=== PATIENT | male | born 1960 | race Caucasian/White ===

== ENCOUNTER 2023-12-05 17:50 | Emergency (ER) | payer MEDICARE, SELFPAY ==
[2023-12-05 17:55] VITALS: BP 157/92
[2023-12-05 18:20] LABS: % Basophils 0.6 % (0-2); % Eosinophils 1.6 % (0-6); % Immature Granulocytes 0.6 % (0-0.5); % Monocytes 6.5 % (1.7-9.3); % Neutrophils 61.7 % (42.2-75.2); Absolute Basophils 0.1 10^3/uL (0-0.2); Absolute Eosinophils 0.2 10^3/uL (0-0.7); Absolute Immature Granulocytes 0.1 10^3/uL (0-0.05); Absolute Lymphocytes 2.7 10^3/uL (1.2-3.4); Absolute Monocytes 0.6 10^3/uL (0.1-0.6); Absolute Neutrophils 5.8 10^3/uL (1.4-6.5); Hematocrit 44.6 % (39.0-52.0); Hemoglobin 14.7 g/dL (13.0-18.0); Mean Corpuscular Hgb 30.3 pg (27.0-31.0); Mean Platelet Volume 9.4 fL (7.4-10.4); Nucleated Red Blood Cells % 0 % (-); Platelet Count 333 10^3/uL (130-400); Red Blood Cell Count 4.85 10^6/uL (4.70-6.10); Red Cell Dist. Width 11.6 % (11.5-14.5); White Blood Cell Count 9.4 10^3/uL (4.8-10.8)
[2023-12-05 18:38] LABS: ALT (SGPT) 27 U/L (0-50); AST (SGOT) 23 U/L (17-59); Albumin 4.3 g/dl (3.5-5.0); Alkaline Phosphatase 78 U/L (38-126); Blood Urea Nitrogen 11 mg/dl (9-20); Calcium 9.5 mg/dl (8.4-10.2); Carbon Dioxide 24 mmol/L (22-30); Chloride 105 mmol/L (98-107); Glucose 110 mg/dl (70-99); Potassium 4.2 mmol/L (3.5-5.1); Sodium 139 mmol/L (135-145); Total Bilirubin 0.4 mg/dl (0.2-1.3); Total Protein 6.8 g/dl (6.3-8.2); eGFR > 60.00
[2023-12-05 18:47] LABS: Troponin I < 0.012 ng/ml
[2023-12-05 18:58] LABS: INR 1.02; PT 13.2 Sec (11.4-14.6)
--- NOTE | 2023-12-05 21:50 | ED.GENMED ---
History of Present Illness
General
Chief Complaint: Cardiac Symptoms
Time Seen by Provider: 12/05/23 20:14
Travel History
Have you had any contact with someone who has COVID-19?: No
Do you have any symptoms of coronavirus? Fever > 100 degrees, chills, cough, shortness of breath, sore throat, loss of taste or smell, muscle aches, or headache?: No
History of Present Illness
History of Present Illness:
63-year-old male with history of hypertension presents to the emergency department for evaluation of generalized weakness ongoing for the past 7 days but worsening over the past 2 to 3 days. He notes difficulty breathing and generalized tremors.
Denies fevers, night sweats, exertional chest pain, or leg swelling. Currently on amoxicillin for dental prophylaxis with upcoming dental extraction scheduled for tomorrow
Past History
Past History
ED Past Medical History: None
ED Past Surgical History: Tonsilectomy
Social History
Tobacco: Smoker
Alcohol: Occasional
Personal: Single
Living: with family
Employment: Employed
Review of Systems
Review of Systems
Allergies reviewed?: Yes
All Other Systems: ROS reviewed and negative except as documented in HPI and ROS
Phy Exam
Physical Exam
Physical Exam:
GEN: Well appearing, NAD, WDWN
Eyes: PERRLA, EOMs intact, no scleral icterus
HENT: NCAT, oral mucosa moist, no JVD
Lungs: CTAB, no wheezes, rales, rhonchi, normal chest wall excursion
Cardiac: RRR, no M/R/G, no peripheral edema. Radial pulses 2+ bilat
Abdomen: S, NT, ND, NABS, no masses or hepatosplenomegaly
Neuro: AO x 3, no focal deficits to BUE/BLE, normal sensation throughout
MSK: No gross deformity or ecchymosis. No edema. No digital clubbing
Skin: No rashes, petechiae. Normal color, no pallor or jaundice.
Psych: Calm, cooperative, proper hygiene
Course
Orders/Labs/Results
Orders:
Orders
12/05/23 17:55
EKG [Electrocardiogram (*1)] Urgent
Reason for Study: Palpitations
CR Chest - 2 Views Urgent
Comment:
Reason For Exam: palpitations
12/05/23 17:56
EKG- Treatment ONCE
12/05/23 18:12
Complete Blood Count/With Diff Urgent
Comprehensive Metabolic Panel Urgent
Prothrombin Time Urgent
Troponin I Urgent
12/05/23 20:49
CT Head W/o Iv Contrast Urgent
Comment:
Reason For Exam: weakness
Abnormal Lab Results
12/05/23
18:12
Abs Immat Gran (auto) 0.1 H 10^3/uL
(0-0.05)
Immature Gran % 0.6 H %
(0-0.5)
Glucose 110 H mg/dl
(70-99)
12/05/23 18:12
12/05/23 18:12
Vital Signs
Initial and Last Documented VS:
Initial Vital Signs
Temp Pulse Resp BP Pulse Ox
97.9 F 89 17 157/92 99
12/05/23 17:55 12/05/23 17:55 12/05/23 17:55 12/05/23 17:55 12/05/23 17:55
Last Documented Vital Signs
Temp Pulse Resp BP Pulse Ox
97.9 F 76 18 143/71 98
12/05/23 17:55 12/05/23 22:12 12/05/23 22:12 12/05/23 22:12 12/05/23 22:12
MDM/Problems Addressed
MDM/Problems Addressed:
63-year-old male presenting with vague symptoms of weakness and intermittent palpitations. Labs are unremarkable, EKG shows no abnormalities, CT of the head was obtained at the patient's request due to his overwhelming symptoms, this showed no
acute pathology. Do not see any indication to withhold his upcoming dental procedure
*Critical Care Note
Total Time (30-74mins, 75-104mins- exclusive of procedures): Not Applicable
ED Attending Note
-
Portions of this chart may have been created with voice recognition software.� Occasional wrong word or��sound alike� substitutions may have occurred due to the inherent limitations of voice recognition software.
Discharge Plan
Departure
Patient Disposition: Home (Routine Discharge)
Date of Disposition: 12/05/23
Time of Disposition: 21:50
Patient with high blood pressure during this ER visit?: No
Discharge Problem:
Fatigue
Instructions: Fatigue (DC)
Prescriptions:
No Action
aspirin 325 MG tablet
2 tab PO PRN PRN (Reason: pain)
sucralfate [Carafate] 1 gram tablet
1 g PO ACHS Qty: 60 0RF
pantoprazole [Protonix] 40 mg tablet,delayed release (DR/EC)
40 mg PO BID Qty: 60 0RF
Referrals:
Allan Lua MD [Family Provider] -
Activity Restrictions/Additional Instructions:
The cause of your symptoms is not clear at this time
Please follow up with your primary care physician as needed for continued symptoms
I do not see any medical indication to alter your dental procedure tomorrow
Interventions
Interventions:
*Risk Screen - Suicide Last Done: 12/05/23 17:55
*General Assessment Last Done: 12/05/23 17:55
*Neglect/Abuse Screening Last Done: 12/05/23 17:55
ED- Fall Risk Assessment Last Done: 12/05/23 22:11
*ED COVID-19 Vaccine History Last Done: 12/05/23 17:55
*Nursing Disposition Last Done: 12/05/23 22:13
ED- Pulmonary Assessment Last Done: 12/05/23 22:11
ED- Cardiac Assessment Last Done: 12/05/23 22:11
Discharge Date and Time
Discharge Date/Time: 12/05/23 22:13
Print Language: OCCITAN
[2023-12-05 22:12] VITALS: BP 143/71
== END 2023-12-05 22:13 | disposition home or self-care (01) ==
LOC: EMR 17:50
PROVIDERS: EMERGENCY PHYSICIAN Student in an Organized Health Care Education/Training Program; FAMILY PHYSICIAN Internal Medicine
DX: R53.83 Other fatigue (principal); F17.200 Nicotine dependence, unspecified, uncomplicated; I10 Essential (primary) hypertension
CPT/HCPCS: 99285; 70450; 71046; 80053; 84484; 85025; 85610; 93005

== ENCOUNTER 2024-08-26 14:16 | Emergency (ER) | payer MEDICARE, SELFPAY ==
[2024-08-26] VITALS (9 sets, daily range): BP systolic 115–151; BP diastolic 71–99; PULSE 70–83
--- NOTE | 2024-08-26 14:39 | ED.GENMED ---
ED Provider Triage
<Vasiliy Morales PA-C - Last Filed: 08/26/24 14:41>
-
Patient seen by provider in Triage?: Seen in Triage
Attestation: A medical screening examination has been initiated by a qualified medical provider. Based on the assessment performed at this time, it has been determined that an emergent medical condition may exist and the patient has been informed
that further medical evaluation and possible additional diagnostic testing may be needed.
HPI: 64-year-old male presenting to the emergency department for evaluation of 2 days of generalized weakness and fatigue, today started noticing worsening paresthesias to the bilateral upper and lower extremities. Notes he was recently treated for
an upper respiratory illness and is completing a course of prednisone. Patient stable. Labs and EKG ordered.
GENERAL: Alert , in no apparent distress
EYE: No visual abnormalities.
NECK: Trachea midline
ENT: No visible abnormalities.
LUNGS: No acute respiratory distress
NEUROLOGICAL: Alert and oriented
SKIN: Skin intact. No visible changes.
MUSCULOSKELETAL: Moving extremities normally
PSYCH: Normal and appropriate interaction.
This is a medical evaluation conducted in person to initiate diagnostic evaluation and provide initial therapeutics. Please see further documentation by the treating clinician.
History of Present Illness
<Vasiliy Morales PA-C - Last Filed: 08/26/24 14:41>
General
Chief Complaint: Fatigue
Time Seen by Provider: 08/26/24 19:52
<Carlene Miles MD - Last Filed: 08/26/24 21:52>
History of Present Illness
History of Present Illness:
Patient is a 64-year-old male with history of hypertension, reflux presenting to the emergency department generalized weakness. Patient for the past 2 days has been having generalized weakness tiredness and lightheadedness dizziness with positional
changes. He has been having some mild exertional shortness of breath. No chest pain. He states that as well as been having paresthesias to his fingers and toes. No numbness tingling to the extremities. No weakness. No fevers or chills. He has
been having some mild congestion. No abdominal pain. No nausea or vomiting. No diarrhea. No melena or hematochezia. He does state that he only had 4 ounces of water today and 16 ounces of water yesterday. He does state his solid intake has
been normal.
Past History
<Vasiliy Morales PA-C - Last Filed: 08/26/24 14:41>
Past History
ED Past Medical History: None
ED Past Surgical History: Tonsilectomy
Social History
Tobacco: Smoker
Alcohol: Occasional
Personal: Single
Living: with family
Employment: Employed
Phy Exam
<Cralene Miles MD - Last Filed: 08/26/24 21:52>
Physical Exam
Physical Exam:
GENERAL: in no acute distress
HEENT: normocephalic, extraocular movements intact, dry oral mucosa
NECK: normal inspection
RESPIRATORY: no respiratory distress, clear to auscultation bilaterally
CARDIOVASCULAR: regular rate and rhythm
ABDOMEN/: soft, non-distended, non-tender to palpation, no rebound or guarding
EXTREMITIES: non-tender, no edema/swelling
NEUROLOGIC: alert and oriented x 3, cranial nerves II-XII intact, right upper extremity strength 5/5, left upper extremity strength 5/5, right lower extremity strength 5/5, left lower extremity strength 5/5, normal sensation to light touch, normal
[id number] and knbc-[id number]-[id number], gait not tested formally
SKIN: warm
Course
<Vasiliy Morales PA-C - Last Filed: 08/26/24 14:41>
Orders/Labs/Results
Orders:
Orders
08/26/24 14:40
Electrocardiogram (*1) Urgent
Reason for Study: Fatigue / Weakness
EKG- Treatment ONCE
08/26/24 14:46
Complete Blood Count/With Diff Urgent
Comprehensive Metabolic Panel Urgent
Magnesium Urgent
TSH Urgent
Troponin I Urgent
08/26/24 19:49
COVID-19 Antigen Urgent
Source: Nasal Swab
Influenza A+B Rapid Molecular Urgent
RADHA Source: Nasal Swab
Specimen Description:
08/26/24 20:00
Orthostatic VS- Treatment ONCE
Mag Hydrox/Al Hydrox/Simeth [Maalox] 30 ml Phenobarb/Hyoscy/Atropine/Scop [] 10 ml Viscous Lidocaine 2% [Xylocaine Viscous Cup] 10 ml PO NOW
08/26/24 20:02
Mag Hydrox/Al Hydrox/Simeth [Maalox] 30 ml .ROUTE .STK-MED ONE
Phenobarb/Hyoscy/Atropine/Scop [] 10 ml .ROUTE .STK-MED ONE
Viscous Lidocaine 2% [Xylocaine Viscous Cup] 15 ml .ROUTE .STK-MED ONE
08/26/24 21:10
Urinalysis Reflex To Culture Urgent
Date Specimen was Collected: 08/26/24
Time Specimen was Collected: 21:04
Urine Microscopic Reflex Cult Urgent
Abnormal Lab Results
08/26/24 08/26/24
14:46 21:10
RBC 4.52 L 10^6/uL
(4.70-6.10)
MCHC 32.7 L g/dL
(33.0-37.0)
Abs Immat Gran (auto) 0.1 H 10^3/uL
(0-0.05)
Absolute Neuts (auto) 7.2 H 10^3/uL
(1.4-6.5)
Immature Gran % 0.8 H %
(0-0.5)
BUN 8 L mg/dl
(9-20)
Glucose 111 H mg/dl
(70-99)
Total Protein 6.2 L g/dl
(6.3-8.2)
Urine Bacteria (Reflex) Few A
(Negative)
Urine Albumin (Reflex) 1+ A
(Neg - Trace)
08/26/24 14:46
08/26/24 14:46
Vital Signs
Initial and Last Documented VS:
Initial Vital Signs
Temp Pulse Resp BP Pulse Ox
99.3 F 87 20 142/73 99
08/26/24 14:40 08/26/24 14:40 08/26/24 14:40 08/26/24 14:40 08/26/24 14:40
Last Documented Vital Signs
Temp Pulse Resp BP Pulse Ox
99.3 F 76 15 134/76 95
08/26/24 14:40 08/26/24 21:45 08/26/24 21:45 08/26/24 21:00 08/26/24 21:45
<Carlene Miles MD - Last Filed: 08/26/24 21:52>
Orders/Labs/Results
Orders:
Orders
08/26/24 14:40
Electrocardiogram (*1) Urgent
Reason for Study: Fatigue / Weakness
EKG- Treatment ONCE
08/26/24 14:46
Complete Blood Count/With Diff Urgent
Comprehensive Metabolic Panel Urgent
Magnesium Urgent
TSH Urgent
Troponin I Urgent
08/26/24 19:49
COVID-19 Antigen Urgent
Source: Nasal Swab
Influenza A+B Rapid Molecular Urgent
RADHA Source: Nasal Swab
Specimen Description:
08/26/24 20:00
Orthostatic VS- Treatment ONCE
Mag Hydrox/Al Hydrox/Simeth [Maalox] 30 ml Phenobarb/Hyoscy/Atropine/Scop [] 10 ml Viscous Lidocaine 2% [Xylocaine Viscous Cup] 10 ml PO NOW
08/26/24 20:02
Mag Hydrox/Al Hydrox/Simeth [Maalox] 30 ml .ROUTE .STK-MED ONE
Phenobarb/Hyoscy/Atropine/Scop [] 10 ml .ROUTE .STK-MED ONE
Viscous Lidocaine 2% [Xylocaine Viscous Cup] 15 ml .ROUTE .STK-MED ONE
08/26/24 21:10
Urinalysis Reflex To Culture Urgent
Date Specimen was Collected: 08/26/24
Time Specimen was Collected: 21:04
Urine Microscopic Reflex Cult Urgent
Abnormal Lab Results
08/26/24 08/26/24
14:46 21:10
RBC 4.52 L 10^6/uL
(4.70-6.10)
MCHC 32.7 L g/dL
(33.0-37.0)
Abs Immat Gran (auto) 0.1 H 10^3/uL
(0-0.05)
Absolute Neuts (auto) 7.2 H 10^3/uL
(1.4-6.5)
Immature Gran % 0.8 H %
(0-0.5)
BUN 8 L mg/dl
(9-20)
Glucose 111 H mg/dl
(70-99)
Total Protein 6.2 L g/dl
(6.3-8.2)
Urine Bacteria (Reflex) Few A
(Negative)
Urine Albumin (Reflex) 1+ A
(Neg - Trace)
08/26/24 14:46
08/26/24 14:46
Vital Signs
Initial and Last Documented VS:
Initial Vital Signs
Temp Pulse Resp BP Pulse Ox
99.3 F 87 20 142/73 99
08/26/24 14:40 08/26/24 14:40 08/26/24 14:40 08/26/24 14:40 08/26/24 14:40
Last Documented Vital Signs
Temp Pulse Resp BP Pulse Ox
99.3 F 76 15 134/76 95
08/26/24 14:40 08/26/24 21:45 08/26/24 21:45 08/26/24 21:00 08/26/24 21:45
<Carlene Miles MD - Last Filed: 08/26/24 21:52>
MDM/Problems Addressed
Differential Diagnosis Includes:
Patient is a 64-year-old male with history of hypertension, reflux presenting to the emergency department with generalized weakness for the past 2 days. Vitals here are unremarkable and exam does show dry oral mucosa. Differential is broad but
consists of metabolic derangement versus UTI versus viral illness. Could be anemia. Lightheadedness dizziness is positional likely orthostatic. History and exam not consistent with a central cause of his dizziness. Blood work obtained prior to
evaluation is unremarkable. Will check urine as well as COVID and flu swab. Will check orthostatic vital signs and encourage p.o. intake and ambulate patient
<Carlene Miles MD - Last Filed: 08/26/24 21:52>
*Critical Care Note
Total Time (30-74mins, 75-104mins- exclusive of procedures): Not Applicable
<Carlene Miles MD - Last Filed: 08/26/24 21:52>
Update Note
Update Note:
COVID flu negative. Orthostatic vitals negative. Patient tolerating p.o. He does feel slightly better after drinking water and eating a box lunch. Will discharge patient at this time. Patient educated on increasing his water intake from 16
ounce ounces.
ED Attending Note
<Vasiliy Morales PA-C - Last Filed: 08/26/24 14:41>
-
Portions of this chart may have been created with voice recognition software.� Occasional wrong word or��sound alike� substitutions may have occurred due to the inherent limitations of voice recognition software.
Discharge Plan
Departure
Patient Disposition: Home (Routine Discharge)
Date of Disposition: 08/26/24
Time of Disposition: 21:51
Patient with high blood pressure during this ER visit?: No
Discharge Problem:
Dehydration
Instructions: Generalized Weakness (DC)
Prescriptions:
No Action
aspirin 325 MG tablet
2 tab PO PRN PRN (Reason: pain)
sucralfate [Carafate] 1 gram tablet
1 g PO ACHS Qty: 60 0RF
pantoprazole [Protonix] 40 mg tablet,delayed release (DR/EC)
40 mg PO BID Qty: 60 0RF
Referrals:
ROSALIA RIZO CRNP [Family Provider] -
Activity Restrictions/Additional Instructions:
You were seen in the Emergency Department today for weakness. While you were here we performed blood work, which was reassuring. Please make sure you drink at least 64 ounces of water.
We would like for you to follow up with your primary care physician for further evaluation. If you experience fever, worsening of your symptoms, or develop any other new or concerning symptoms, please return to the Emergency Department immediately.
Please see the attached sheet for additional information.
Interventions
Interventions:
*Risk Screen - Suicide Last Done: 08/26/24 14:40
*General Assessment Last Done: 08/26/24 14:40
*Neglect/Abuse Screening Last Done: 08/26/24 14:40
*ED COVID-19 Vaccine History Last Done: 08/26/24 19:39
Discharge Date and Time
Print Language: ISRAELI
[2024-08-26 15:00] LABS: % Basophils 0.4 % (0-2); % Eosinophils 0.9 % (0-6); % Immature Granulocytes 0.8 % (0-0.5); % Lymphocytes 24.3 % (20.5-51.1); % Monocytes 5.4 % (1.7-9.3); % Neutrophils 68.2 % (42.2-75.2); Absolute Eosinophils 0.1 10^3/uL (0-0.7); Absolute Immature Granulocytes 0.1 10^3/uL (0-0.05); Absolute Lymphocytes 2.6 10^3/uL (1.2-3.4); Absolute Monocytes 0.6 10^3/uL (0.1-0.6); Absolute Neutrophils 7.2 10^3/uL (1.4-6.5); Hematocrit 42.5 % (39.0-52.0); Hemoglobin 13.9 g/dL (13.0-18.0); Mean Corp Hgb Conc. 32.7 g/dL (33.0-37.0); Mean Corpuscular Hgb 30.8 pg (27.0-31.0); Mean Platelet Volume 9.5 fL (7.4-10.4); Nucleated Red Blood Cells % 0 % (-); Platelet Count 303 10^3/uL (130-400); Red Blood Cell Count 4.52 10^6/uL (4.70-6.10); Red Cell Dist. Width 12.1 % (11.5-14.5); White Blood Cell Count 10.5 10^3/uL (4.8-10.8)
[2024-08-26 15:13] LABS: ALT (SGPT) 24 U/L (0-50); AST (SGOT) 22 U/L (17-59); Alkaline Phosphatase 71 U/L (38-126); Blood Urea Nitrogen 8 mg/dl (9-20); Calcium 9.3 mg/dl (8.4-10.2); Carbon Dioxide 24 mmol/L (22-30); Chloride 107 mmol/L (98-107); Glucose 111 mg/dl (70-99); Magnesium 2.1 mg/dl (1.6-2.3); Potassium 4.1 mmol/L (3.5-5.1); Sodium 137 mmol/L (135-145); Total Bilirubin 0.5 mg/dl (0.2-1.3); Total Protein 6.2 g/dl (6.3-8.2); eGFR > 60.00
[2024-08-26 15:24] LABS: Troponin I < 0.012 ng/ml
[2024-08-26 15:42] LABS: TSH 1.31 uIU/ml (0.47-4.68)
[2024-08-26] MEDS: MAALOX 50 PO (20:07)
[2024-08-26 20:16] LABS: COVID-19 Antigen Negative (Negative)
[2024-08-26 21:15] LABS: Urine Albumin 1+ (Neg - Trace); Urine Bilirubin Negative (Negative); Urine Character Clear (Clear); Urine Color Yellow; Urine Glucose Negative (Negative); Urine Ketone Negative (Negative); Urine Leukocyte Negative (Negative); Urine Nitrite Negative (Negative); Urine Occult Blood Negative (Negative); Urine Specific Gravity 1.025 (<1.030); Urine Urobilinogen Negative (Neg - 1+)
[2024-08-26 21:45] LABS: Urine Bacteria Few (Negative); Urine Hyaline Cast 0-2 /LPF (0-2); Urine Mucus Moderate; Urine Red Blood Cell 0-2 /HPF (0-2); Urine Squamous Cell 0-2 /LPF (Few)
== END 2024-08-26 21:55 | disposition home or self-care (01) ==
LOC: EMR 14:16
PROVIDERS: Emergency Medicine; Physician Assistant Medical; EMERGENCY PHYSICIAN Student in an Organized Health Care Education/Training Program; FAMILY PHYSICIAN Nurse Practitioner Gerontology
DX: E86.0 Dehydration (principal); R42 Dizziness and giddiness; R53.1 Weakness; R20.2 Paresthesia of skin; Z11.52 Encounter for screening for COVID-19; I10 Essential (primary) hypertension; F17.200 Nicotine dependence, unspecified, uncomplicated; K21.9 Gastro-esophageal reflux disease without esophagitis; Z88.1 Allergy status to other antibiotic agents
CPT/HCPCS: 99283; 80053; 81003; 81015; 83735; 84443; 84484; 85025; 87502; 87811; 93005

== ENCOUNTER → 2024-10-13 14:27 | Outpatient (REF) | payer MEDICARE, SELFPAY | LOC: MRI 3T 14:27 | PROVIDERS: ATTENDING PHYSICIAN Internal Medicine Hematology & Oncology; FAMILY PHYSICIAN Nurse Practitioner Gerontology | DX: R16.0 Hepatomegaly, not elsewhere classified (principal) | CPT/HCPCS: 74183; A9581 ==

== ENCOUNTER 2025-01-25 16:31 | Inpatient (IN) | payer MEDICARE, SELFPAY ==
[2025-01-25] VITALS (13 sets, daily range): BP systolic 87–135; BP diastolic 58–79; BMI 24.6; BMI 24.1
[2025-01-25 11:36] LABS: Hematocrit 29.1 % (39.0-52.0); Hemoglobin 10.1 g/dL (13.0-18.0); Mean Corp Hgb Conc. 34.7 g/dL (33.0-37.0); Mean Corpuscular Volume 90.1 fL (80.0-94.0); Nucleated Red Blood Cells % 0 % (-); Platelet Count 127 10^3/uL (130-400); Red Cell Dist. Width 14.9 % (11.5-14.5)
--- NOTE | 2025-01-25 11:44 | ED.GENMED ---
History of Present Illness
General
Chief Complaint: Abdominal Symptoms
Source: patient
Exam Limitations: none
Time Seen by Provider: 01/25/25 11:35
Nursing documentation reviewed up to this point in time: agreed with
History of Present Illness
History of Present Illness:
64 yo male w h/o HTN, GERD, diagnosed with hepatocellular carcinoma in 09/2024 at [facility]. Undergoing chemotherapy treatment every two weeks at [facility] under the care of oncologist Luis Fernando Garibay and doctor Lucia Clancy. The patient
reports feeling weak and shaky for the past day and a half and experiencing new stomach pain, which began approximately a day and a half ago. The pain, referred to by the patient as starting in the lower back near the kidney region, is described as
congestion-like and rates it at 4 out of 10 while resting and 8/10 with standing. The patient notes that the discomfort can escalate to more severe pain.
His last normal bowel movement was yesterday morning. The patient reports difficulty initiating urination, a symptom that is new. He denies any chest pain or breathing difficulties. The patient has nausea but no vomiting, and he has access to
ondansetron at home for nausea management, although he has only required it since last night.
Past History
Past History
ED Past Medical History: Cancer (Liver with mets), GERD and HTN
ED Past Surgical History: Tonsilectomy
Social History
Tobacco: Former smoker
Alcohol: None
Personal: Single
Living: with family
Employment: Employed
Review of Systems
Review of Systems
Allergies reviewed?: Yes
All Other Systems: ROS reviewed and negative except as documented in HPI and ROS
Constitutional: Reports fever and fatigue
Respiratory: Denies trouble breathing
Cardiac: Denies chest pain
ABD/GI: Reports abdominal pain and nausea; Denies vomiting or diarrhea
: Reports difficulty voiding; Denies dysuria
Musculoskeletal: Reports back pain
Skin: Reports other (Right upper chest port access)
Neurological: Reports weakness (Generalized); Denies headache
Phy Exam
Physical Exam
Physical Exam:
GENERAL: No acute distress. A&Ox3.
CONSTITUTIONAL: Afebrile.
EYES: clear, conjunctivae normal
ENMT: moist mucus membranes, Pharynx nl
RESPIRATORY: Regular respirations, nonlabored, lungs clear.
CARDIOVASCULAR: Regular rate and rhythm, no murmurs, no rubs.
GI: Soft, generally tender to palpation, normal BS
MUSCULOSKELETAL: Moves with ease. Well perfused.
SKIN: Warm, dry, pink. Port R upper chest wall.
PSYCH: Normal mood and affect. Well kept, interactive and appropriate
NEUROLOGIC: Awake, alert and oriented. No focal neurological deficits
Course
Orders/Labs/Results
Orders:
Orders
01/25/25 11:22
Complete Blood Count/With Diff Urgent
Comprehensive Metabolic Panel Urgent
Lactic Acid Urgent
Lipase Urgent
Urinalysis Reflex To Culture Urgent
Date Specimen was Collected: 01/25/25
Time Specimen was Collected: 11:04
Urine Microscopic Reflex Cult Urgent
Blood Culture Routine
RADHA Source: Blood/Venous
Specimen Description:
Urine Culture Urgent
RADHA Source: U
Specimen Description:
Date Specimen was Collected: 01/25/25
Time Specimen was Collected: 11:04
01/25/25 12:04
Piperacillin/Tazo 3.375 Gram [Zosyn] 3.375 gram in 50 ml IV NOW
01/25/25 12:09
0.9% Sodium Chloride 1000 ml [Nss] 1,000 ml IV BOLUS
01/25/25 12:14
CT Abd/Pel (IV only)-DH only Urgent
Comment:
Reason For Exam: weak, worse abd/back pain known liver ca w mets
01/25/25 12:17
Blood Culture Q30M
RADHA Source: Blood/Venous
Specimen Description:
01/25/25 12:45
Blood Culture Q30M
RADHA Source: Blood/Venous
Specimen Description:
01/25/25 14:46
0.9% Sodium Chloride 1000 ml [Nss] 1,000 ml IV BOLUS
01/25/25 15:31
Piperacillin/Tazo 4.5 Gram [Zosyn] 4.5 gram in 100 ml IV NOW
01/25/25 15:43
Vancomycin [Vancocin] 1,500 mg 0.9% Sodium Chloride 500 ml [Nss] 500 ml IV NOW
01/25/25 15:50
HYDROmorphone [Dilaudid] 0.5 mg IV NOW STA
01/25/25 16:04
Admit/Transfer Patient As Directed
Co-Sign Provider:
Level of Care: Inpatient admission
Assign to:: Medical/Surgical
Physician / Group: [email or web address]
Diagnosis: SIRS/Sepsis, acute proctocolitis, acute pancreatitis
Reason for Hospitalization: SIRS/Sepsis, acute proctocolitis, acute pancreatitis
Expected length of stay greater than two midnights?: Yes
ELOS- Estimated Length of Stay in days: 5
I certify the patient meets the requirements for IP care: Yes
01/25/25 16:06
Code Status As Directed
Resuscitation Status: Full Code
Abnormal Lab Results
01/25/25
11:22
RBC 3.23 L 10^6/uL
(4.70-6.10)
Hgb 10.1 L g/dL
(13.0-18.0)
Hct 29.1 L %
(39.0-52.0)
MCH 31.3 H pg
(27.0-31.0)
RDW 14.9 H %
(11.5-14.5)
Plt Count 127 L 10^3/uL
(130-400)
Abs Immat Gran (auto) 0.1 H 10^3/uL
(0-0.05)
Absolute Lymphs (auto) 0.8 L 10^3/uL
(1.2-3.4)
Immature Gran % 1.0 H %
(0-0.5)
Neutrophils % 82.7 H %
(42.2-75.2)
Lymphocytes % 11.3 L %
(20.5-51.1)
Sodium 127 L mmol/L
(135-145)
Chloride 95 L mmol/L
(98-107)
Glucose 108 H mg/dl
(70-99)
Lactic Acid 2.7 H mmol/L
(0.7-2.0)
Lipase > 4000 H* U/L
(23-300)
Ur Occult Blood Reflex 1+ A
(Negative)
Leukocyte Esterase Rfl 1+ A
(Negative)
Urine RBC 3-6 A /HPF
(0-2)
Urine Bacteria (Reflex) Moderate A
(Negative)
Urine Albumin (Reflex) 2+ A
(Neg - Trace)
01/25/25 11:22
01/25/25 11:22
Vital Signs
Initial and Last Documented VS:
Initial Vital Signs
Temp Pulse Resp BP Pulse Ox
100.6 F H 115 18 108/65 98
01/25/25 10:58 01/25/25 10:58 01/25/25 10:58 01/25/25 10:58 01/25/25 10:58
Last Documented Vital Signs
Temp Pulse Resp BP Pulse Ox
100.6 F H 99 13 111/77 99
01/25/25 10:58 01/25/25 15:15 01/25/25 15:15 01/25/25 15:00 01/25/25 15:15
MDM/Problems Addressed
Differential Diagnosis Includes:
1. Chemotherapy-related side effects
2. Urinary tract infection
3. Gastroenteritis
4. Nephrolithiasis
5. Prostatitis
6. Pyelonephritis
7. Bowel obstruction
8. Abdominal malignancy
9. Electrolyte imbalance
10. Acute kidney injury
MDM/Problems Addressed:
64 yo male w h/o HTN, GERD, diagnosed with hepatocellular carcinoma in 09/2024 at [facility]. Undergoing chemotherapy treatment every two weeks at [facility] under the care of oncologist Luis Fernando Garibay and doctor Lucia Clancy. The patient
reports feeling weak and shaky for the past day and a half and experiencing new stomach pain, which began approximately a day and a half ago. The pain, referred to by the patient as starting in the lower back near the kidney region, is described as
congestion-like and rates it at 4 out of 10 while resting and 8/10 with standing. The patient notes that the discomfort can escalate to more severe pain.
His last normal bowel movement was yesterday morning. The patient reports difficulty initiating urination, a symptom that is new. He denies any chest pain or breathing difficulties. The patient has nausea but no vomiting, and he has access to
ondansetron at home for nausea management, although he has only required it since last night.
Temp 100.6
Currently declines when offered pain medication
CBC noted
CMP: Na+127
Lactic 2.7
Lipase >4000
Plan: Obtain abdominal CT, IVFs, admit: Acute pancreatitis, hyponatremia, liver ca with mets
3:[address] abd/pelvis w IV contrast radiology report read:
IMPRESSION:
1. MILD ACUTE PROCTOCOLITIS in the sigmoid colon and rectum.
2. 5.4 cm MALIGNANT HEPATIC MASS in the lateral segment of the left lobe of the liver.
3. Metastatic tomasa hepatis and portacaval lymphadenopathy.
4. Mild splenomegaly.
5. Severe calcific atherosclerotic plaque in the abdominal aorta.
6. Mild diffuse urinary bladder wall thickening (either cystitis or chronic outlet obstruction).
7. Moderate to severe discogenic degenerative disease at L5/S1.
Plan: Admit: Acute Pancreatitis, proctitis, metastatic hepatocarcinoma, hyponatremia.
Pt remains comfortable
Hospitalist notified of admission.
*Pulse Oximetry
SaO2: 98
Oxygen Mode of Delivery: Room air
Patient hypoxic: no
*Critical Care Note
Total Time (30-74mins, 75-104mins- exclusive of procedures): Not Applicable
ED Attending Note
-
Portions of this chart may have been created with voice recognition software.� Occasional wrong word or��sound alike� substitutions may have occurred due to the inherent limitations of voice recognition software.
Discharge Plan
Departure
Patient Disposition: Admit
Date of Disposition: 01/25/25
Time of Disposition: 15:36
Admit to: Med/Surg
Presentation/result/management discussed w/ accepting MD/DO: Hospitalist
Condition: Serious
Discharge Problem:
Acute pancreatitis, Acute proctitis, Hepatocellular carcinoma, Acute hyponatremia
Prescriptions:
No Action
acetaminophen [Tylenol] 325 mg Tablet
650 mg PO Q6HPRN PRN (Reason: mild pain)
atorvastatin [Lipitor] 20 mg Tablet
20 mg PO QPM
ondansetron HCl 8 mg tablet
8 mg PO TIDPRN PRN (Reason: nausea)
lisinopril 20 mg Tablet
20 mg PO DAILY
pantoprazole [Protonix] 40 mg Tablet,Delayed Release (Dr/Ec)
40 mg PO DAILY
Referrals:
ROSALIA RIZO CRNP [Family Provider, Family Practice]
Interventions
Interventions:
*Risk Screen - Suicide Last Done: 01/25/25 10:58
*General Assessment Last Done: 01/25/25 10:58
*Neglect/Abuse Screening Last Done: 01/25/25 10:58
*ED COVID-19 Vaccine History Last Done: 01/25/25 10:58
[facility] Assessment Last Done: 01/25/25 12:51
Discharge Date and Time
Print Language: SYRIAC
[2025-01-25 11:55] LABS: ALT (SGPT) 27 U/L (0-50); AST (SGOT) 23 U/L (17-59); Albumin 4.4 g/dl (3.5-5.0); Alkaline Phosphatase 72 U/L (38-126); Blood Urea Nitrogen 15 mg/dl (9-20); Calcium 9.5 mg/dl (8.4-10.2); Carbon Dioxide 25 mmol/L (22-30); Chloride 95 mmol/L (98-107); Glucose 108 mg/dl (70-99); Potassium 4.1 mmol/L (3.5-5.1); Sodium 127 mmol/L (135-145); Total Protein 6.8 g/dl (6.3-8.2); Urine Character Clear (Clear); eGFR > 60.00
[2025-01-25 12:08] LABS: Lipase > 4000 U/L (23-300)
[2025-01-25] MEDS: NSS 1000 IV ×2 (12:13→15:43)
[2025-01-25] MEDS: ZOSYN 100 IV (15:42)
--- NOTE | 2025-01-25 15:48 | HPS.HSE ---
Family Physician
-
Family Physician: CASEY BAUGH
Chief Complaint
-
weak, shaky, abdominal pain
History of Present Illness
64M HX metastatic HCC ( September 2024) at [facility]. He undergoing chemotherapy treatment every two weeks at [facility] under the care of oncologist Luis Fernando Garibay and doctor Lucia Clancy.
- reports feeling weak and shaky for the past day and a half
- acute onset of new stomach pain for last day and a half ago starting in the lower back near the kidney region
- pain is 4 out of 10 while resting and 8/10 with standing.
- last BM was yesterday morning.
- difficulty initiating urination
- denies any CP or SoB
- nausea but no vomiting
- access to ondansetron at home for nausea management, although he has only required it since last night.
Medical History
Past Medical History
Past Medical History: Reports Cancer (metatstatic liver CA C ( September 2024) at [facility] on chemoc q 2weeks ), GERD and HTN
Past Surgical History: Reports Tonsilectomy
Social History
Tobacco: Former Smoker
Alcohol: None
Personal: Single
Living: With Family
Family History
Family History: Not pertinent
Allergies / Home Medications
Allergies reflects when Allergies were last updated in [employer].
Home Medications with original date entered in [employer]
Allergy/Medication List:
Allergies
Allergy/AdvReac Type Severity Reaction Status Date / Time
erythromycin base Allergy Pharmacy Verified 01/25/25 11:03
(Erythromycin Base) to Review
Home Medications
acetaminophen 325 mg tablet (Tylenol) 650 mg PO Q6HPRN PRN mild pain 01/25/25
atorvastatin 20 mg tablet (Lipitor) 20 mg PO QPM 01/25/25
lisinopril 20 mg tablet 20 mg PO DAILY 01/25/25
ondansetron HCl 8 mg tablet 8 mg PO TIDPRN PRN nausea 01/25/25
pantoprazole 40 mg tablet,delayed release (Protonix) 40 mg PO DAILY 01/25/25
Review of Systems
-
Constitutional: Reports Fatigue and Chills
EENT: Reports No Symptoms
Respiratory: Reports No Symptoms
Cardiac: Reports No Symptoms
Abdomen/GI: Reports Abdominal Pain and Nausea
: Reports No Symptoms
Musculoskeletal: Reports No Symptoms
Skin: Reports No Symptoms
Neurological: Reports No Symptoms
Endocrine: Reports No Symptoms
Hematologic/Lymphatic: Reports No Symptoms
Psych: Reports No Symptoms
Physical Exam
Vital Signs
Vital Signs
Temp Pulse Resp BP Pulse Ox
100.6 F H 99 13 111/77 99
01/25/25 10:58 01/25/25 15:15 01/25/25 15:15 01/25/25 15:00 01/25/25 15:15
Physical Exam
General: Conversant, Fever, Chills and Other (surprisingly , he does not looks toxic )
HEENT: NormoCephalic, Moist mucous membranes and Atraumatic
Respiratory: Clear
Cardiac: S1/S2 and Regular Rhythm; No Murmur or Rub
GI: Soft and Tender (Soft, generally tender to palpation, normal BS)
Rectal: Deferred by Provider
Musculoskeletal: No Clubbing, No Cyanosis and No Edema
Skin: No Rash
Neuro: Nonfocal/grossly intact
Laboratory Results
-
01/25/25 11:22
01/25/25 11:22
Laboratory Results
Lactic Acid 2.7 mmol/L (0.7-2.0) H 01/25/25 11:22
Total Bilirubin 0.8 mg/dl (0.2-1.3) 01/25/25 11:22
AST 23 U/L (17-59) 01/25/25 11:22
ALT 27 U/L (0-50) 01/25/25 11:22
Alkaline Phosphatase 72 U/L (38-126) 01/25/25 11:22
Lipase > 4000 U/L (23-300) H* 01/25/25 11:22
Data Reviewed
-
CT Scan: Report Reviewed by me
Lab Data: Labs Reviewed by me
Impression/Plan
-
Vital Signs
Temp Pulse Resp BP Pulse Ox
100.6 F H 99 13 111/77 99
01/25/25 10:58 01/25/25 15:15 01/25/25 15:15 01/25/25 15:00 01/25/25 15:15
Laboratory Tests
08/26/24 01/25/25
14:46 11:22
WBC 10.5 7.2
Hgb 13.9 10.1 L
Plt Count 303 127 L
Sodium 127 L
Chloride 95 L
Carbon Dioxide 25
Creatinine 0.7
eGFR > 60.00
Glucose 108 H
Lactic Acid 2.7 H
AST 23
ALT 27
Alkaline Phosphatase 72
Lipase > [address] abd/pelvis w IV contrast radiology report read:
1. MILD ACUTE PROCTOCOLITIS in the sigmoid colon and rectum.
2. 5.4 cm MALIGNANT HEPATIC MASS in the lateral segment of the left lobe of the liver.
3. Metastatic tomasa hepatis and portacaval lymphadenopathy.
4. Mild splenomegaly.
5. Severe calcific atherosclerotic plaque in the abdominal aorta.
6. Mild diffuse urinary bladder wall thickening (either cystitis or chronic outlet obstruction).
7. Moderate to severe discogenic degenerative disease at L5/S1.
NO PRIOR hospitalist admission:
ASSESSMENT & PLAN
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
- Low threshold to treat with BS ABx
SIRS/Sepsis ( T 100.6, HR >90, LA 2.7) presumed acute infectious but uncertain origin
Concern with bacteremia
CT suggest acute proctocolitis ? chemo related
Low clinical suspicion for biliary/ obstructive sepsis given nl LFTs and nl TB
- NPO for acute pancreatitis and with LR IV
- stool for Cx if any diarrhea
- BCx sent
- empiric vanco and Zosyn
- PRN analgesia
Acute pancreatitis unlikely GS related ( abdominal pain + Lipse > 4000)
- NPO and generous LR IVF
- PRN narcotic analgesia
- PRN anti emetics
- trend Lipsae
- GI consult
HX metastatic HCC September 2024) at [facility].
- undergoing chemotherapy q 2weeks @ [facility], [facility] under the care of oncologist Luis Fernando Garibay and Lucia Clancy.
- Hold of Statin for now
Bn HTN
- Hold of Lisinopril to SIRS/Sepsis
DVT Px: SCD
Full code
IP MS
[2025-01-25] MEDS: DILAUDID 0.5 MG IV ×2 (15:55→19:51)
[2025-01-25] MEDS: VANCOCIN 530 MG IV (16:49)
--- NOTE | 2025-01-25 21:00 | PTCARENOTE ---
pt is aaox3, reports abdominal pain 3/10, tender. pt states he last had chemo on friday 01/19 and goes every 2weeks. SQ port flushes fine. - ivf attached. pt oriented to room w/ call lewis in reach.
[2025-01-25] MEDS: ZOSYN 50 IV (21:57)
[2025-01-25] MEDS: LR 1000 IV (21:58)
[2025-01-25 23:54] LABS: Urine Character Clear (Clear)
[2025-01-26] MEDS: LR 1000 IV ×2 (03:40→13:04)
[2025-01-26] MEDS: ZOSYN 50 IV ×4 (03:40→22:26)
[2025-01-26] MEDS: VANCOCIN 275 MG IV (04:57)
[2025-01-26 05:10] VITALS: BMI 24.1
[2025-01-26 05:16] LABS: Hematocrit 21.3 % (39.0-52.0); Hemoglobin 7.5 g/dL (13.0-18.0); Mean Corp Hgb Conc. 35.2 g/dL (33.0-37.0); Mean Corpuscular Volume 90.6 fL (80.0-94.0); Platelet Count 71 10^3/uL (130-400); Red Cell Dist. Width 14.8 % (11.5-14.5)
[2025-01-26 05:38] LABS: ALT (SGPT) 20 U/L (0-50); AST (SGOT) 19 U/L (17-59); Albumin 3.1 g/dl (3.5-5.0); Alkaline Phosphatase 59 U/L (38-126); Amylase 137 U/L (30-110); Blood Urea Nitrogen 10 mg/dl (9-20); Calcium 8.2 mg/dl (8.4-10.2); Carbon Dioxide 24 mmol/L (22-30); Chloride 103 mmol/L (98-107); Estimated Creatinine Clearance 107 ml/min; Glucose 78 mg/dl (70-99); Lipase 602 U/L (23-300); Potassium 3.5 mmol/L (3.5-5.1); Sodium 129 mmol/L (135-145); Total Protein 5.1 g/dl (6.3-8.2); eGFR > 60.00
[2025-01-26] MEDS: ZOFRAN 4 MG IV ×2 (07:15→15:42)
[2025-01-26 07:20] VITALS: BP 112/63
--- NOTE | 2025-01-26 09:26 | PHA.VAN.IN ---
Assessment
- Assessment
Renal Function: Appears similar to baseline
Maximum Temperature: 100.6
Minimum Temperature: 98
Concomitant Antimicrobials: piperacillin/tazobactam
AUC Dosing Plan
- Dosing Variables
Dosing Weight (kg): 63.6
Dosing CrCl (ml/min): 100
Vd coefficient (L/kg): 0.7
- Empiric Dosing
Initial / Loading Dose: vancomycin 1500mg X 1
Maintenance Regimen: vancomycin 1000mg Q12H
Estimated AUC (mcg*h/mL): 536
Estimated Peak (mcg*h/mL): 34.6
Estimated Trough (mcg/ml): 13.2
Estimated Half Life (H): 7.9
- Monitoring
No levels ordered at this time: consider levels in next few days
Pharmacokinetics Vancomycin I
- -
Patient Age: 64
Patient Sex: Male
Vancomycin Day #: 2
Indication: Gi / Intra-Abdominal
Requesting Provider: Dr. Michael
Pertinent Antimicrobial Allergies:
erythromycin
Height / Weight:
Height 5 ft 4 in
Actual Weight 63.588 kg
IBW in k.2
Adjusted BW in k
Pertinent Past Medical History: metastatic HCC
- Vital Signs / Lab Results
Temp Pulse Resp BP Pulse Ox
98 F 88 12 112/63 97
01/26/25 07:20 01/26/25 07:20 01/26/25 07:20 01/26/25 07:20 01/26/25 07:20
Lab Results - Hematology
01/25/25 01/26/25
11:22 05:01
WBC 7.2 3.7 L
Lab Results - Chemistry
01/25/25 01/26/25
11:22 05:01
BUN 15 10
Creatinine 0.7 0.6 L
Estimated Creat Clear 107
Albumin 4.4 3.1 L
01/25/25 01/25/25 01/26/25
11:22 21:18 00:59
Lactic Acid 2.7 H < 0.5 L Cancelled
01/26/25 01/26/25
04:59 08:59
Lactic Acid Cancelled Cancelled
Lab Results - Urine
01/25/25 01/25/25
11:22 23:39
Urine Nitrite (Reflex) Negative Negative
Leukocyte Esterase Rfl 1+ A Negative
Urine WBC (Reflex) 6-10
Ur Squamous Epith Cells 3-5
Urine Bacteria (Reflex) Moderate A
--- NOTE | 2025-01-26 11:39 | CON.GI ---
Addendum entered and electronically signed by Gracie Benjamin Do, MD 01/26/25 14:50:
I saw and examined the patient.
The CREATIVE ENGAGEMENT DIRECTOR's note was reviewed and I agree with the note.
Comment: Luis Fernando is a 64yo M with HCC with periportal lymphadenopathy diagnosed 09/[address] Morales at [facility] who was admitted for weakness and fever. This is progressive. He cannot recollect what chemo that he is using through
PORT. He denies sick contacts. Vitals reviewed AF abd distended obese NTTP. NABS. Labs reviewed pancytopenia LFTs normal. Lipase >4000. CTAP done 1. MILD ACUTE PROCTOCOLITIS in the sigmoid colon and rectum. 5.4 cm MALIGNANT HEPATIC MASS in
the lateral segment of the left lobe of the liver. Metastatic tomasa hepatis and portacaval lymphadenopathy.
Impression
- Weakness and fever
May be related to recent 8 rounds of chemotherapy
- Abnormal CT scan
No diarrhea prior to abx
- Elevated lipase
Does not meet clinical criteria for pancreatitis given not characteristic pain and normal pancreas on CT
May be chemo related
- Pancytopenia
- Metastatic HCC with lymphadenopathy
- HTN
Recommendations
- Await stool studies
- C/w abx
- Panculture including UA BC thus far negative
- Miralax x1 now suspect constipation
- Hold chemo. Records requested for [facility] records for treatment details
- C/w CLD anticipate advancement tomorrow
Will follow with you
Original Note:
Consultation
-
Date/Time Consultation Requested: 01/25/252058
Date/Time Consultation Performed: 01/26/25 1030
Requesting Provider: Dr. Michael
Performing Provider: Dr. Busby/CASEY Tam
Reason for Consultation: SIRS, sepsis, acute proctocolitis, pancreatitis
Medical History
Chief Complaint / HPI
Chief Complaint: fever, shaking, nausea, abd pain
History of Present Illness:
64-year-old male with past medical history of hypertension, GERD, newly diagnosed hepatocellular carcinoma and September 2024 treated at [facility] undergoing chemotherapy every 2 weeks (under the care of oncologist Luis Fernando Benton and
Lucia Clancy) who presents to the emergency room with 2-day history of feeling weak, shaky with rigors and subjective feelings of fever with nausea and abdominal discomfort that he describes as mid periumbilical, gnawing, gripping that radiated
through to his back. He rates this as an 8 on a scale of 1-10. He denied any vomiting. He did not have a bowel movement for 2 days but did have multiple episodes of loose stool starting today. He states that his abdominal discomfort has
decreased and is currently a 4 out of 1-10. His nausea has improved as well. He does endorse multiple episodes of loose stool since yesterday. We are asked to evaluate for nausea, abdominal pain, proctocolitis seen on imaging and questionable
pancreatitis. He states he is on his 'off week' of chemo. He lives with his father. He denies any recent sick contacts, spoiled food. Tmax here is 100.6 on presentation. He has been afebrile since. Blood cultures and urine cultures are
pending. WBC count went from 7.2 down to 3.7. Hemoglobin is currently 7.5 down from 10.1 this is with hemodilution with normal saline boluses as well as lactated Ringer's at 200 cc an hour. No signs of bleeding. The patient continues on Zosyn
and vancomycin at present time. Platelets are currently 71 down from 127. Sodium 127, potassium 3.5, chloride 103, CO2 24, BUN 10, creatinine 0.6, glucose 78, lactic acid is currently less than 0.5 down from 2.7. Total bilirubin 0.7, AST 19, ALT
20, alk phos 59, amylase 137, lipase 600 (down from greater than 4000). Repeat UA, negative. CT of the abdomen pelvis with IV contrast only was reviewed. This shows mild acute proctocolitis in the sigmoid colon and rectum. 5.4 cm malignant
hepatic mass in the lateral segment of the left lobe of liver. Metastatic tomasa hepatis and portacaval lymphadenopathy. Mild splenomegaly. Mild diffuse urinary bladder wall thickening either cystitis or chronic outlet obstruction. Mild to severe
discogenic degenerative disc disease at L5/S1.
Past Medical History
Past Medical History: Cancer (HCC dx [facility] (09/2024) ), GERD and HTN
Past Surgical History: Tonsilectomy and Other (right chest wall port)
Social History
Tobacco: Former Smoker
Alcohol: Occasional (previously a couple times a year, )
Drug: None
Personal: Single
Living: With Family
Employment: Employed
Family History
Family History: Other (Mother with liver tumor 'not malignant')
Allergies / Home Medications
Allergy/AdvReac Type Severity Reaction Status Date / Time
erythromycin base Allergy Pharmacy Verified 01/25/25 11:03
(Erythromycin Base) to Review
�Medication �Instructions �Recorded
acetaminophen 325 mg tablet 650 mg PO Q6HPRN PRN mild pain 01/25/25
(Tylenol)
atorvastatin 20 mg tablet (Lipitor) 20 mg PO QPM 01/25/25
lisinopril 20 mg tablet 20 mg PO DAILY 01/25/25
ondansetron HCl 8 mg tablet 8 mg PO TIDPRN PRN nausea 01/25/25
pantoprazole 40 mg tablet,delayed 40 mg PO DAILY 01/25/25
release (Protonix)
Review of Systems
Vital Signs
Temp Pulse Resp BP Pulse Ox
98 F 88 12 112/63 97
01/26/25 07:20 01/26/25 07:20 01/26/25 07:20 01/26/25 07:20 01/26/25 07:20
Physical Exam
Results
WBC 3.7 10^3/uL (4.8-10.8) L 01/26/25 05:01
Hgb 7.5 g/dL (13.0-18.0) L D 01/26/25 05:01
Hct 21.3 % (39.0-52.0) L 01/26/25 05:01
MCV 90.6 fL (80.0-94.0) 01/26/25 05:01
Plt Count 71 10^3/uL (130-400) L D 01/26/25 05:01
Absolute Neuts (auto) 5.9 10^3/uL (1.4-6.5) 01/25/25 11:22
Sodium 129 mmol/L (135-145) L 01/26/25 05:01
Potassium 3.5 mmol/L (3.5-5.1) 01/26/25 05:01
Chloride 103 mmol/L (98-107) 01/26/25 05:01
Carbon Dioxide 24 mmol/L (22-30) 01/26/25 05:01
BUN 10 mg/dl (9-20) 01/26/25 05:01
Creatinine 0.6 mg/dL (0.7-1.3) L 01/26/25 05:01
Calcium 8.2 mg/dl (8.4-10.2) L 01/26/25 05:01
Total Bilirubin 0.7 mg/dl (0.2-1.3) 01/26/25 05:01
AST 19 U/L (17-59) 01/26/25 05:01
ALT 20 U/L (0-50) 01/26/25 05:01
Alkaline Phosphatase 59 U/L (38-126) 01/26/25 05:01
Amylase 137 U/L (30-110) H 01/26/25 05:01
Lipase 602 U/L (23-300) H 01/26/25 05:01
Diagnostic Image Results:
CT Abd/Pelvis with IV contrast:
IMPRESSION:
1. MILD ACUTE PROCTOCOLITIS in the sigmoid colon and rectum.
2. 5.4 cm MALIGNANT HEPATIC MASS in the lateral segment of the left lobe of the liver.
3. Metastatic tomasa hepatis and portacaval lymphadenopathy.
4. Mild splenomegaly.
5. Severe calcific atherosclerotic plaque in the abdominal aorta.
6. Mild diffuse urinary bladder wall thickening (either cystitis or chronic outlet obstruction).
7. Moderate to severe discogenic degenerative disease at L5/S1.
\\
MRI of the abdomen 10/13/2024:
IMPRESSION:
1. LARGE 7.6 cm MALIGNANT HEPATIC MASS in the lateral segment of the left lobe of the liver. Diagnostic possibilities are (1) INTRAHEPATIC BILE DUCT CANCER, (2) hepatocellular carcinoma, (3) lymphoma, or (4) metastatic disease.
2. 1.1 cm lesion in the posterior segment of the right lobe and 5 mm lesion in the medial segment of the left lobe of the liver (probably more likely small hemangiomas than additional malignant lesions given the enhancement pattern).
3. Moderate amount of MALIGNANT LYMPHADENOPATHY in the UPPER ABDOMEN.
4. Severe discogenic degenerative disease at L5/S1.
Prior GI Procedures:
EGD: never had
Colonoscopy: never had
Assessment / Plan
-
64-year-old male with past medical history of hypertension, GERD, newly diagnosed hepatocellular carcinoma and September 2024 treated at [facility] undergoing chemotherapy every 2 weeks (under the care of oncologist Luis Fernando Benton and
Lucia Clancy) who presents to the emergency room with 2-day history of feeling weak, shaky with rigors and subjective feelings of fever with nausea and abdominal discomfort that he describes as mid periumbilical, gnawing, gripping that radiated
through to his back. He rates this as an 8 on a scale of 1-10. He denied any vomiting. He did not have a bowel movement for 2 days but did have multiple episodes of loose stool starting today. He states that his abdominal discomfort has
decreased and is currently a 4 out of 1-10. His nausea has improved as well. He does endorse multiple episodes of loose stool since yesterday. We are asked to evaluate for nausea, abdominal pain, proctocolitis seen on imaging and questionable
pancreatitis.
Impression:
Fever
Immunocompromised patient
Hx HCC on CTX tx at [facility]
Elevated Lipase without any inflammation seen on imaging, however with nausea and pain radiating to back.
--reviewed prior MRI as well, no hx of gallstones.
Proctocolitis on iamging with loose stools today
--check stool studies, viral
--Possible CTX induced
Plan:
-Check stool CDiff, Culture, WBC, O&P, norovirus, yersinia
-Continue IVF
-CBC, CMP in am
-Trend lipase
-Continue clear liquids, patient tolerating
-Await urine and blood cultures
-Incentive spirometer
-Oncololgy consult pending
-
-
Thank you for consultation and allowing me to participate in the patient's care. Please call the wildland fire operations specialist GI physician during the after hours with any questions or concerns.
[2025-01-26 11:40] VITALS: BMI 24.1
--- NOTE | 2025-01-26 12:45 | W.PN.HOSP.TC ---
Today's Communication/Plan
-
see note
Assessment / Plan
Assessment / Plan
1. Sepsis -present on admission
Immunocompromise host
Acute proctocolitis
- Denies of having any pulmonary or issues
- CT abdomen pelvis showing possible proctocolitis
- Diarrhea started after initiation of Zosyn and not as a presenting symptom
- Also on vancomycin which we will discontinue based on clinical progress
2. Elevated lipase
- Patient denies epigastric pain and CT did not reveal any pancreatic change
- Lipase elevated greater than 4000 which is trended down to 600
- Continue monitoring
- Starting on liquid diet
3. Pancytopenia
- Low hemoglobin/platelet/total WBC count. Normal ANC
- Patient had last chemotherapy 19 january. Patient unsure if he got G-CSF inj after chemo
- Transfuse PRBC if hemoglobin less than 7 or plt < 10k
- Hemat/onc requested to follow
4. History of metastatic hepatic cancer
- Getting chemotherapy every 2 weeks at [facility] under oncologist Dr. Morales and Lucia spann
5. Essential hypertension
- Resume back lisinopril
DVT PPX - scd
Full code
Total time spent : 53 mins
Anticipated Discharge: > 48 hours
Subjective/Interval History
-
Date of Service: January 26, 2025
Resting comfortably in bed
Having some lower abdominal discomfort
Afebrile overnight
Objective Data
-
Labs:
Laboratory Results
01/26/25
05:01
WBC 3.7 L
Hgb 7.5 L D
Hct 21.3 L
Plt Count 71 L D
Sodium 129 L
Potassium 3.5
Chloride 103
Carbon Dioxide 24
BUN 10
Creatinine 0.6 L
Glucose 78
Calcium 8.2 L
Total Bilirubin 0.7
AST 19
ALT 20
Alkaline Phosphatase 59
Vital Signs:
Vital Signs
Temp Pulse Resp BP Pulse Ox
98 F 88 12 112/63 97
01/26/25 07:20 01/26/25 07:20 01/26/25 07:20 01/26/25 07:20 01/26/25 07:20
I&O
01/25/25 01/26/25 01/27/25
06:59 06:59 06:59
Intake Total 1525 / 1525
Balance 1525 / 1525
Review of Systems
-
Respiratory: Reports No Symptoms
Cardiac: Reports No Symptoms
Abdomen/GI: Reports Abdominal Pain; Denies Nausea or Vomiting
Physical Exam
-
General: No Apparent Distress and Comfortable
HEENT: Negative Oxygen
Respiratory: Clear to Auscultation
Cardiac: Regular Rhythm and S1/S2; Negative Murmur or Rub
GI: Soft, Nondistended and Tender (Lower abd)
Musculoskeletal: No Edema
Neuro: Awake, Alert, Oriented, No Motor Deficits and Nonfocal/Grossly Intact
Psych: Calm
[2025-01-26] MEDS: PROTONIX 40 MG PO (13:01)
[2025-01-26] MEDS: ZESTRIL 20 MG PO (13:01)
[2025-01-26] MEDS: LR IV (13:04)
--- NOTE | 2025-01-26 13:17 | CON.ONC ---
Consultation
-
Date Consultation Requested: 01/26/25
Date Consultation Performed: 01/26/25
Requesting Provider: Jl Gasca
Performing Provider: Dr. Tatyana Forde
Reason for Consultation: pancytopenia
Impression
Impression
a/w sepsis/fever
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
pancytopenia -no neutropenia or thrombocytopenia in prior cycles
acute proctocolitis
acute on chronic anemia, baseline Hgb 10-11g/dL
hyponatremia
Plan
Plan
daily CBC with differential
on IV abx per primary service, follow cultures
symptom support
antiemetics
check iron studies, monitor for bleeding
GI following
Patient History
History of Present Illness
64yo M presented with abdominal, pain and weakness. HIs initial evaluation was notable for Tmax 100.6F. HIs CBC showed pancytopenia. His CMP showed hyponatremia. His CT ab/pelvis showed mild acute proctocolitis. He has been admitted, started on IV
abx, and on a clear liquid diet.
In brief, Luis Fernando is known to [facility] oncology. He is receiving gemcitabine/cisplatin and duvalumab for stage IV intrahepatic cholangiocarcinoma that was diagnosed in October 2024. Cycle 4 was delayed due to feeling unwell on 01/12 and he received
cycle 4, Day 8 with dose reduction on 01/19/2025. He tells me that he does not receive GCSF with his treatments. HIs restaging after 3 cycles of therapy showed a positive response to treatment. He usually feels some nausea with each cycle that is
controlled with zofran. He has been using ensure BID to help with calorie intake and avoid further weight loss.
Past-Medical/Surgical History
PMH HTN, HLD, CAD, GERD
PSH liver biopsy, tonsilectomy
Social former smoker, denies etoh or recreational drugs
Family denies malignancy
Patient Medication
�Medication �Instructions �Recorded �Confirmed �Last Taken �Type
acetaminophen 325 mg tablet 650 mg PO Q6HPRN PRN mild pain 01/25/25 01/25/25 01/24/25 History
(Tylenol)
atorvastatin 20 mg tablet (Lipitor) 20 mg PO QPM 01/25/25 01/25/25 01/24/25 History
lisinopril 20 mg tablet 20 mg PO DAILY 01/25/25 01/25/25 01/25/25 History
ondansetron HCl 8 mg tablet 8 mg PO TIDPRN PRN nausea 01/25/25 01/25/25 01/24/25 History
pantoprazole 40 mg tablet,delayed 40 mg PO DAILY 01/25/25 01/25/25 01/25/25 History
release (Protonix)
Active Medications
Generic Name Dose Route Start Last Admin
Trade Name Freq PRN Reason Stop Dose Admin
Acetaminophen 650 mg 01/25/25 20:59
Acetaminophen 325 Mg Tablet PO 02/22/25 20:58
Q4HPRN PRN
mild pain/JUDD/temp> 100.4F
Bisacodyl 10 mg 01/25/25 20:59
Bisacodyl 10 Mg Rectal Suppository RECTAL 02/22/25 20:58
[id number] PRN
constipation
Heparin Sodium (Porcine) 500 unit 01/26/25 08:15
Heparin Flush Pf (100 Unit/Ml) 5 Ml Syringe IV 02/23/25 08:14
PER PROTOCOL DELFINO
Hydromorphone HCl 0.5 mg 01/25/25 19:30 01/25/25 19:51
Hydromorphone 0.5 Mg/0.5 Ml Syringe IV 02/08/25 19:29 0.5 mg
Q4HPRN PRN Administration
severe pain
Piperacillin Sod/Tazobactam Sod 3.375 gram in 50 mls @ 100 mls/hr 01/25/25 22:00 01/26/25 10:37
Zosyn IV 50 mls
Q6H DELFINO Administration
Lactated Ringer's 1,000 mls @ 75 mls/hr 01/25/25 20:59 01/26/25 03:40
Lr IV 1,000 mls
.[id number] DELFINO Administration
Vancomycin HCl 1 gram in 200 mls @ 200 mls/hr 01/26/25 18:00
Vancocin IV
Q12H DELFINO
Lisinopril 20 mg 01/26/25 12:00
Lisinopril 20 Mg Tablet PO 02/23/25 11:59
DAILY DELFINO
Ondansetron HCl 4 mg 01/25/25 19:30 01/26/25 07:15
Ondansetron 4 Mg/2 Ml Vial IV 02/22/25 19:29 4 mg
Q6HPRN PRN Administration
nausea and vomiting
Pantoprazole Sodium 40 mg 01/26/25 12:00
Pantoprazole 40 Mg Delayed Release Tablet PO 02/23/25 11:59
DAILY DELFION
Polyethylene Glycol 17 grams 01/25/25 20:59
Polyethylene Glycol Powder 17 Grams Packet PO 02/22/25 20:58
DAILYPRN PRN
constipation
Senna/Docusate Sodium 1 tablet 01/25/25 20:59
Docusate W/Senna (Lucia-Colace) Tablet PO 02/22/25 20:58
BIDPRN PRN
constipation
Sodium Chloride 0 flush 01/25/25 22:00
Sodium Chloride 0.9% (Flush) Syringe IV 02/22/25 21:59
PER PROTOCOL DELFINO
Physical Exam
-
General: No Apparent Distress and Appears Chronically Ill
HEENT: Moist Mucous Membranes; Negative Jaundice
Cardiology: Normal Sinus Rhythm
Pulmonary: Clear
GI: Soft and Other (LLQ TTP)
Extremities: Pulses Present; Negative Edema
Neurology: Non Focal
Skin: Warm
Psych: Calm
Labs
Lab Results
WBC 3.7 10^3/uL (4.8-10.8) L 01/26/25 05:01
RBC 2.35 10^6/uL (4.70-6.10) L 01/26/25 05:01
Hgb 7.5 g/dL (13.0-18.0) L D 01/26/25 05:01
Hct 21.3 % (39.0-52.0) L 01/26/25 05:01
MCV 90.6 fL (80.0-94.0) 01/26/25 05:01
MCH 31.9 pg (27.0-31.0) H 01/26/25 05:01
MCHC 35.2 g/dL (33.0-37.0) 01/26/25 05:01
RDW 14.8 % (11.5-14.5) H 01/26/25 05:01
Plt Count 71 10^3/uL (130-400) L D 01/26/25 05:01
MPV 9.6 fL (7.4-10.4) 01/26/25 05:01
Abs Immat Gran (auto) 0.1 10^3/uL (0-0.05) H 01/25/25 11:22
Absolute Neuts (auto) 5.9 10^3/uL (1.4-6.5) 01/25/25 11:22
Absolute Lymphs (auto) 0.8 10^3/uL (1.2-3.4) L 01/25/25 11:22
Absolute Monos (auto) 0.3 10^3/uL (0.1-0.6) 01/25/25 11:22
Absolute Eos (auto) 0.0 10^3/uL (0-0.7) 01/25/25 11:22
Absolute Basos (auto) 0.0 10^3/uL (0-0.2) 01/25/25 11:22
Immature Gran % 1.0 % (0-0.5) H 01/25/25 11:22
Neutrophils % 82.7 % (42.2-75.2) H 01/25/25 11:22
Lymphocytes % 11.3 % (20.5-51.1) L 01/25/25 11:22
Monocytes % 4.5 % (1.7-9.3) 01/25/25 11:22
Eosinophils % 0.1 % (0-6) 01/25/25 11:22
Basophils % 0.4 % (0-2) 01/25/25 11:22
Creatinine 0.6 mg/dL (0.7-1.3) L 01/26/25 05:01
Vital Signs
Vital Signs
Temp Pulse Resp BP Pulse Ox
98 F 88 12 112/63 97
01/26/25 07:20 01/26/25 07:20 01/26/25 07:20 01/26/25 07:20 01/26/25 07:20
--- NOTE | 2025-01-26 14:58 | CM ---
Patient seen at bedside
IA completed
Dx: Sepsis
History of metastatic hepatic cancer, receives chemo
Lives with his dad in a 2 story home, 1 step to enter, flight stairs to bed/bath
PLOF: Independent
Denies DME
Denies VN/Rehab
Denies insecurities
PCP: Iman Jordan
Pharmacy: [address] [facility]
PLAN: Home, no needs anticipated when stable
[2025-01-26 15:13] VITALS: BP 121/73
[2025-01-26] MEDS: FLUSH (NSS) 4 FLUSH IV (15:42)
[2025-01-26] MEDS: VANCOCIN 200 IV (17:38)
[2025-01-26] MEDS: DILAUDID 0.5 MG IV (22:21)
[2025-01-26 23:09] VITALS: BP 115/72
--- NOTE | 2025-01-27 02:27 | DOWNTIME ---
There was a [employer] Downtime on 01/27/2025 from 0100 to 01/27/2025 at 0220. Downtime documentation of patient's care, including medication administrations, has been reconciled in the electronic record per guidelines. Refer to the
patient's paper chart under the miscellaneous tab to see printed paper medication records and downtime forms.
[2025-01-27] MEDS: ZOSYN 50 IV ×2 (04:26→09:58)
[2025-01-27 04:56] LABS: Hematocrit 21.2 % (39.0-52.0); Hemoglobin 7.5 g/dL (13.0-18.0); Mean Corp Hgb Conc. 35.4 g/dL (33.0-37.0); Mean Corpuscular Volume 89.5 fL (80.0-94.0); Platelet Count 74 10^3/uL (130-400); Red Cell Dist. Width 14.9 % (11.5-14.5)
[2025-01-27 05:05] LABS: Fibrinogen 513 MG/DL (199-459); INR 1.04; PT 13.9 Sec (11.4-14.6)
[2025-01-27 05:08] LABS: D-Dimer 0.98 ug/mlFEU (0.00-0.50)
[2025-01-27 05:15] LABS: ALT (SGPT) 23 U/L (0-50); AST (SGOT) 23 U/L (17-59); Albumin 3.1 g/dl (3.5-5.0); Alkaline Phosphatase 59 U/L (38-126); Blood Urea Nitrogen 4 mg/dl (9-20); Calcium 8.4 mg/dl (8.4-10.2); Carbon Dioxide 28 mmol/L (22-30); Chloride 98 mmol/L (98-107); Estimated Creatinine Clearance 107 ml/min; Glucose 85 mg/dl (70-99); Lipase 735 U/L (23-300); Potassium 3.2 mmol/L (3.5-5.1); Sodium 128 mmol/L (135-145); Total Protein 5.1 g/dl (6.3-8.2); eGFR > 60.00
[2025-01-27] MEDS: LR IV (05:17)
[2025-01-27 05:28] VITALS: BMI 23.8
[2025-01-27 05:41] LABS: APTT 32.2 Sec (23.4-35.0)
[2025-01-27 05:56] LABS: Ferritin 485.0 ng/ml (17.9-464.0)
[2025-01-27] MEDS: VANCOCIN 200 IV (06:20)
[2025-01-27 08:09] VITALS: BP 111/65
[2025-01-27] MEDS: ZESTRIL 20 MG PO (08:17)
[2025-01-27] MEDS: PROTONIX 40 MG PO (08:17)
--- NOTE | 2025-01-27 09:06 | PHA.VAN.FU ---
Addendum entered and electronically signed by Catia Simmons [facility] 01/27/25 09:26:
MRSA screen ordered per protocol
Original Note:
Vancomycin Assessment / Plan
- Assessment
Renal Function: Stable
In the past 24 hrs, patient has been: Afebrile
Concomitant Antimicrobials: piperacillin/tazobactam
- Dosing Plan
Continue: Vanc 1000mg Q12H
- Monitoring Plan
No level(s) ordered at this time: consider levels in next few days
- Follow Up
Pharmacy will continue to follow.
Vancomycin Follow UP
- -
Patient Age: 64
Patient Sex: Male
Vancomycin Day #: 3
Indication: Gi / Intra-Abdominal
Requesting Provider: Dr. Michael
Pertinent Antimicrobial Allergies:
erythromycin - delusional
Height / Weight:
Height 5 ft 4 in
Actual Weight 62.959 kg
IBW in k.2
Adjusted BW in k
Pertinent Past Medical History: stage IV intrahepatic cholangiocarcinoma
- Vital Signs / Lab Results
Temp Pulse Resp BP Pulse Ox
99.8 F 81 18 111/65 93
01/27/25 08:09 01/27/25 08:17 01/27/25 08:09 01/27/25 08:17 01/27/25 08:09
Lab Results - Hematology
01/25/25 01/26/25 01/27/25
11:22 05:01 04:21
WBC 7.2 3.7 L 2.9 L
Lab Results - Chemistry
01/25/25 01/26/25 01/27/25
11:22 05:01 04:21
BUN 15 10 4 L
Creatinine 0.7 0.6 L 0.6 L
Estimated Creat Clear 107 107
Albumin 4.4 3.1 L 3.1 L
01/25/25 01/25/25 01/26/25
11:22 21:18 00:59
Lactic Acid 2.7 H < 0.5 L Cancelled
01/26/25 01/26/25
04:59 08:59
Lactic Acid Cancelled Cancelled
Microbiology Results
01/26/25 16:00 Stool Leukocytes - Final
Feces/Stool
01/26/25 16:01 C. difficile GDH Antigen & Toxins - Final
Feces/Stool Negative for toxigenic C.difficile
- Final
Negative for Norovirus GI and GII.
01/25/25 21:18 Blood Culture - Preliminary
Blood/Venous No Growth in 24 hours- Final report to follow
01/25/25 12:17 Blood Culture - Preliminary
Blood/Venous No Growth in 24 hours- Final report to follow
01/25/25 11:22 Blood Culture - Preliminary
Blood/Venous No Growth in 24 hours- Final report to follow
01/25/25 11:22 Urine Culture - Final
Urine NO GROWTH
--- NOTE | 2025-01-27 09:59 | W.PN.ONC2 ---
Today's Communication / Plan
-
daily CBC with diff
Impression
Impression
a/w sepsis/fever
stage IV intrahepatic cholangiocarcinoma s/p C4D8 gemcitabine/cisplatin and duvalumab on 01/19 -no sxs immune toxicity from check point inhibitor
pancytopenia -no neutropenia or thrombocytopenia in prior cycles, elevated ferritin, no evidence acute DIC with elevated fibrinogen
acute proctocolitis
acute on chronic anemia, baseline Hgb 10-11g/dL
hyponatremia
elevated amylase/lipase
Plan
Plan
daily CBC with differential, ANC 1500 today
on IV abx per primary service, follow cultures
symptom support
antiemetics
monitor for bleeding
GI following with plans for flex sig today
Subjective/Objective
Subjective
pain and nausea improved
denies overt bleeding
Vital Signs:
Vital Signs
Temp Pulse Resp BP Pulse Ox
99.8 F 81 18 111/65 93
01/27/25 08:09 01/27/25 08:17 01/27/25 08:09 01/27/25 08:17 01/27/25 08:09
Lab Results:
Laboratory Data
WBC 2.9 10^3/uL (4.8-10.8) L 01/27/25 04:21
Hgb 7.5 g/dL (13.0-18.0) L 01/27/25 04:21
Plt Count 74 10^3/uL (130-400) L 01/27/25 04:21
PT 13.9 Sec (11.4-14.6) 01/27/25 04:21
INR 1.04 01/27/25 04:21
APTT 32.2 Sec (23.4-35.0) 01/27/25 04:21
eGFR > 60.00 01/27/25 04:21
Physical Exam
HEENT: No Jaundice
Cardiology: Normal Sinus Rhythm
Pulmonary: Clear
GI: Soft and Other (TTP mostly LLQ)
Extremities: Pulses Present; No Edema
Neuro: Non Focal
Orders
Orders
Orders From Last 24 Hours
01/27/25 04:21
D-Dimer IN AM
Ferritin IN AM
Fibrinogen IN AM
PT/INR [Prothrombin Time] IN AM
PTT IN AM
--- NOTE | 2025-01-27 10:08 | W.PN.UPDATE ---
Update Note
Progress Note Update
reviewed case with Dr. Morris and pt. Plan for flex with biopsy to eval for colitis today. Pt wishes for sedation-- will make NPO now and proceed later today for flex.
[2025-01-27 10:26] LABS: Nucleated Red Blood Cells % 0 % (-)
--- NOTE | 2025-01-27 12:11 | PTCARENOTE ---
Pt off unit for flx sig in GI lab, k rider to be given when pt returns.
[2025-01-27 13:05] VITALS: BP 102/65
[2025-01-27 13:15] VITALS: BP 113/64
[2025-01-27 13:30] VITALS: BP 132/76
[2025-01-27] MEDS: KCL 160 MEQ IV (13:33)
--- NOTE | 2025-01-27 13:39 | CM ---
Patient chart reviewed
Procedure: Flexible Sigmoidoscopy
PLAN: Home, no needs anticipated, CM to continue to follow
--- NOTE | 2025-01-27 13:41 | PTCARENOTE ---
Pt back from flex sig, K rider infusing, vss, low lactose diet ordered.
--- NOTE | 2025-01-27 13:53 | W.PN.HOSP.TC ---
Today's Communication/Plan
-
advance diet per GI
imodium for symptomatic care
change abx to unasyn
Assessment / Plan
Assessment / Plan
1. Sepsis -present on admission
Immunocompromise host
Acute proctocolitis
- Denies of having any pulmonary or issues
- CT abdomen pelvis showing possible proctocolitis
- Changed zosyn to unasyn
- s/p flex sig today showing healthy looking recto-sigmoid mucosa.
2. Elevated lipase
- Patient denies epigastric pain and CT did not reveal any pancreatic change
- Lipase elevated greater than 4000 which is trended down to 600
- Continue monitoring
- No abd pain/n/v today, diet switched to low lactose diet by GI.
3. Pancytopenia
- Low hemoglobin/platelet/total WBC count. Normal ANC
- Patient had last chemotherapy 19 january. Patient unsure if he got G-CSF inj after chemo
- Transfuse PRBC if hemoglobin less than 7 or plt < 10k
- Hemat/onc requested to follow
4. History of metastatic hepatic cancer
- Getting chemotherapy every 2 weeks at [facility] under oncologist Dr. Morales and Lucia spann
5. Essential hypertension
- Resume back lisinopril
DVT PPX - scd
Full code
Anticipated Discharge: 24 - 48 hours
Subjective/Interval History
-
Date of Service: January 27, 2025
continues to have diarrhea
afebrile
no abd pain/nausea/vomiting
Objective Data
-
Labs:
Laboratory Results
01/27/25
04:21
WBC 2.9 L
Hgb 7.5 L
Hct 21.2 L
Plt Count 74 L
PT 13.9
INR 1.04
APTT 32.2
Sodium 128 L
Potassium 3.2 L
Chloride 98
Carbon Dioxide 28
BUN 4 L
Creatinine 0.6 L
Glucose 85
Calcium 8.4
Total Bilirubin 0.5
AST 23
ALT 23
Alkaline Phosphatase 59
Vital Signs:
Vital Signs
Temp Pulse Resp BP Pulse Ox
98.9 F 85 16 132/76 96
01/27/25 13:30 01/27/25 13:30 01/27/25 13:30 01/27/25 13:30 01/27/25 13:30
I&O
01/26/25 01/27/25 01/28/25
06:59 06:59 06:59
Intake Total 1525 / 1525 930 / 930
Balance 1525 / 1525 930 / 930
Review of Systems
-
Respiratory: Reports No Symptoms
Cardiac: Reports No Symptoms
Abdomen/GI: Reports No Symptoms
Physical Exam
-
General: No Apparent Distress and Comfortable
HEENT: Negative Oxygen
Respiratory: Clear to Auscultation
Cardiac: Regular Rhythm and S1/S2; Negative Murmur or Rub
GI: Soft, Nondistended and Tender (Lower abd)
Musculoskeletal: No Edema
Neuro: Awake, Alert, Oriented, No Motor Deficits and Nonfocal/Grossly Intact
Psych: Calm
[2025-01-27] MEDS: UNASYN IV ×2 (15:33→22:22)
[2025-01-27] MEDS: ZOFRAN 4 MG IV (15:43)
[2025-01-27 15:49] VITALS: BP 111/64
[2025-01-27] MEDS: COMPAZINE 10 MG IV (17:32)
[2025-01-27 23:45] VITALS: BP 111/63
[2025-01-28] MEDS: UNASYN IV ×4 (04:35→22:27)
[2025-01-28 05:58] LABS: Hematocrit 22.8 % (39.0-52.0); Hemoglobin 7.7 g/dL (13.0-18.0); Mean Corp Hgb Conc. 33.8 g/dL (33.0-37.0); Mean Corpuscular Volume 90.5 fL (80.0-94.0); Platelet Count 92 10^3/uL (130-400); Red Cell Dist. Width 15.1 % (11.5-14.5)
[2025-01-28 06:00] VITALS: BMI 23.2
[2025-01-28 06:12] LABS: ALT (SGPT) 23 U/L (0-50); AST (SGOT) 21 U/L (17-59); Albumin 3.3 g/dl (3.5-5.0); Alkaline Phosphatase 58 U/L (38-126); Blood Urea Nitrogen 4 mg/dl (9-20); Calcium 8.6 mg/dl (8.4-10.2); Carbon Dioxide 27 mmol/L (22-30); Chloride 101 mmol/L (98-107); Estimated Creatinine Clearance 107 ml/min; Glucose 93 mg/dl (70-99); Lipase 653 U/L (23-300); Potassium 3.1 mmol/L (3.5-5.1); Sodium 133 mmol/L (135-145); Total Protein 5.4 g/dl (6.3-8.2); eGFR > 60.00
--- NOTE | 2025-01-28 07:20 | W.PN.ONC2 ---
Today's Communication / Plan
-
Continue supportive care with antiemetics and antidiarrheals and await final GI cultures but so far no obvious infectious or inflammatory etiology.
Impression
Impression
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
pancytopenia -no neutropenia or thrombocytopenia in prior cycles, elevated ferritin, no evidence acute DIC with elevated fibrinogen
acute proctocolitis
acute on chronic anemia, baseline Hgb 10-11g/dL
hyponatremia
elevated amylase/lipase
Plan
Plan
WBC count seems to have nadired yesterday and is starting to improve. Increased from 2.9 back up to 3.7.
Flex sig did not reveal evidence of inflammatory colitis.
Continue supportive care. Appreciate GI consultation.
Subjective/Objective
Chief Complaint
[facility] hematology oncology follow-up
Subjective
Still not feeling great. Has nausea, diarrhea, and weakness. GI following and performed flexible sigmoidoscopy yesterday that was relatively unremarkable.
Vital Signs:
Vital Signs
Temp Pulse Resp BP Pulse Ox
98.9 F 93 12 111/63 97
01/27/25 23:45 01/27/25 23:45 01/27/25 23:45 01/27/25 23:45 01/27/25 23:45
Lab Results:
Laboratory Data
WBC 3.7 10^3/uL (4.8-10.8) L 01/28/25 05:25
Hgb 7.7 g/dL (13.0-18.0) L 01/28/25 05:25
Plt Count 92 10^3/uL (130-400) L D 01/28/25 05:25
PT 13.9 Sec (11.4-14.6) 01/27/25 04:21
INR 1.04 01/27/25 04:21
APTT 32.2 Sec (23.4-35.0) 01/27/25 04:21
eGFR > 60.00 01/28/25 05:26
Flex sig 01/27:
Findings:
- The digital rectal exam was normal. Pertinent negatives include
no palpable rectal lesions.
- Normal mucosa was found in the rectum and in the sigmoid colon.
Very normal appearing colon with no inflammation or ulcerations. No
biopsies taken.
Impression:
- Normal mucosa in the rectum and in the sigmoid colon.
- No specimens collected. No inflammation or ulcerations.
Recommendation:
- Continue present medications.
- Await final stool studies, start prn imodium
- Lactose free diet today.
- Start imodium 2mg every 6 hrs prn diarrhea
Physical Exam
Somewhat ill-appearing but nontoxic
HEENT: Moist Mucous Membranes
Cardiology: S1 and S2
Pulmonary: Clear
GI: Soft
[2025-01-28 07:45] VITALS: BP 109/72
[2025-01-28] MEDS: PROTONIX 40 MG PO (08:38)
[2025-01-28] MEDS: ZESTRIL 20 MG PO (08:38)
[2025-01-28] MEDS: FLUSH (NSS) 2 FLUSH IV (10:00)
[2025-01-28] MEDS: FLUSH (NSS) 1 FLUSH IV ×2 (11:04→17:25)
--- NOTE | 2025-01-28 11:16 | W.PN.GI.CBS2 ---
Addendum entered and electronically signed by Dulce Morris DO 01/28/25 14:44:
Patient seen and examined independently of CASEY. I agree with her note with my additions below
Luis Fernando is a 64-year-old male with history of cholangiocarcinoma being treated at the [facility] who was admitted with nausea abdominal pain while on chemotherapy found to have questionable proctocolitis on imaging who underwent a
flexible sigmoidoscopy with normal mucosa. No biopsies taken due to the very normal appearance.
He had not had any bowel movements when I saw him this morning. He has not required any Imodium.
Tolerating some food but overall still feels weak.
No evidence of pancreatitis
Seems to be improving. Likely discharge tomorrow.
No evidence of checkpoint inhibitor colitis
GI will sign off. Please call with questions. Okay to use as needed Imodium or Pepto-Bismol outpatient if necessary
Original Note:
Today's Communication / Plan
-
--Possible CTX induced symptoms
feeling better
stools neg so far
s/p flex with normal finding no biopsy
diarrhea improving
imodium PRN - no doses needed
cont diet - low lactose
urine cx neg ,blood cx neg so far
oncology following
Assessment / Plan
-
64-year-old male with past medical history of hypertension, GERD, newly diagnosed hepatocellular carcinoma and September 2024 treated at [facility] undergoing chemotherapy every 2 weeks (under the care of oncologist Luis Fernando Benton and
Lucia Clancy) who presents to the emergency room with 2-day history weakness, shakiness, initial constipation then diarrhea. We are asked to evaluate for nausea, abdominal pain, proctocolitis seen on imaging and questionable pancreatitis.
01/27- flex - The digital rectal exam was normal. Pertinent negatives include no palpable rectal lesions.
- Normal mucosa was found in the rectum and in the sigmoid colon.
Very normal appearing colon with no inflammation or ulcerations. No
biopsies taken.
Impression:
diarrhea
proctocolitis/bladder wall thickening on imaging
Fever
Immunocompromised patient
Hx HCC with noted adenopathy on CTX tx at [facility]
Elevated Lipase without any inflammation seen on imaging
--reviewed prior MRI as well, no hx of gallstones.
Plan:
--Possible CTX induced symptoms
feeling better
stools neg so far
s/p flex with normal finding no biopsy
diarrhea improving
imodium PRN -- no doses needed
cont diet - low lactose
urine cx neg ,blood cx neg so far
oncology following
Subjective
Subjective
Date of Service: January 28, 2025
01/27 brown stool on low lactose diet-- diarrhea improving
Objective
Data Reviewed
Laboratory Data:
Laboratory Results
01/28/25 05:25
01/28/25 05:26
Laboratory Results
PT 13.9 Sec (11.4-14.6) 01/27/25 04:21
INR 1.04 01/27/25 04:21
APTT 32.2 Sec (23.4-35.0) 01/27/25 04:21
Total Bilirubin 0.4 mg/dl (0.2-1.3) 01/28/25 05:26
AST 21 U/L (17-59) 01/28/25 05:26
ALT 23 U/L (0-50) 01/28/25 05:26
Alkaline Phosphatase 58 U/L (38-126) 01/28/25 05:26
Amylase 137 U/L (30-110) H 01/26/25 05:01
Lipase 653 U/L (23-300) H 01/28/25 05:26
Vital Signs and I&O:
Vital Signs
Temp Pulse Resp BP Pulse Ox
98 F 89 14 109/72 97
01/28/25 07:45 01/28/25 08:38 01/28/25 07:45 01/28/25 08:38 01/28/25 07:45
I&O
01/27/25 01/28/25 01/29/25
06:59 06:59 06:59
Intake Total 930 / 930 240 / 240
Balance 930 / 930 240 / 240
Physical Exam
Physical Exam
HEENT: Anicteric and Moist mucous membranes
Cardiology: Normal Sinus Rhythm
Pulmonary: Clear
GI: Soft, Non Distended and Non Tender
Extremities: No Edema
Neuro: Non Focal
[2025-01-28] MEDS: KCL 20 MEQ PO (11:41)
[2025-01-28] MEDS: IMODIUM 2 MG PO (11:44)
--- NOTE | 2025-01-28 13:22 | W.PN.HOSP.TC ---
Addendum entered and electronically signed by Jl Gasca MD 01/28/25 14:46:
Yes pancytopenia is related to chemotherapy
Original Note:
Today's Communication/Plan
-
continue abx
imodium prn for diarrhea
discharge planning for tomorrow
Assessment / Plan
Assessment / Plan
1. Sepsis -present on admission
Immunocompromise host
Acute proctocolitis
- Denies of having any pulmonary or issues
- CT abdomen pelvis showing possible proctocolitis
- Changed zosyn to unasyn
- s/p flex sig today showing healthy looking recto-sigmoid mucosa.
- imodium for symptomatic care of diarrhea
2. Elevated lipase
- Patient denies epigastric pain and CT did not reveal any pancreatic change
- Lipase elevated greater than 4000 which is trended down to 600
- Continue monitoring
- No abd pain/n/v today, diet switched to low lactose diet by GI.
3. Pancytopenia
- Low hemoglobin/platelet/total WBC count. Normal ANC
- Patient had last chemotherapy 19 january. Patient unsure if he got G-CSF inj after chemo
- Transfuse PRBC if hemoglobin less than 7 or plt < 10k
- Hematology/oncology requested to follow
4. History of metastatic hepatic cancer
- Getting chemotherapy every 2 weeks at [facility] under oncologist Dr. Morales and Lucia spann
5. Essential hypertension
- Resume back lisinopril
DVT PPX - scd
Full code
Anticipated Discharge: Within 24 hours
Subjective/Interval History
-
Date of Service: January 28, 2025
Subjectively feeling better
Still have some ongoing diarrhea although bit better
Denies abdominal pain/nausea/vomiting
Objective Data
-
Labs:
Laboratory Results
01/28/25 01/28/25
05:25 05:26
WBC 3.7 L
Hgb 7.7 L
Hct 22.8 L
Plt Count 92 L D
Sodium 133 L
Potassium 3.1 L
Chloride 101
Carbon Dioxide 27
BUN 4 L
Creatinine 0.6 L
Glucose 93
Calcium 8.6
Total Bilirubin 0.4
AST 21
ALT 23
Alkaline Phosphatase 58
Vital Signs:
Vital Signs
Temp Pulse Resp BP Pulse Ox
98 F 89 14 109/72 97
01/28/25 07:45 01/28/25 08:38 01/28/25 07:45 01/28/25 08:38 01/28/25 07:45
I&O
01/27/25 01/28/25 01/29/25
06:59 06:59 06:59
Intake Total 930 / 930 240 / 240
Balance 930 / 930 240 / 240
Review of Systems
-
Respiratory: Reports No Symptoms
Cardiac: Reports No Symptoms
Abdomen/GI: Reports No Symptoms
Physical Exam
-
General: No Apparent Distress and Comfortable
HEENT: Negative Oxygen
Respiratory: Clear to Auscultation
Cardiac: Regular Rhythm and S1/S2; Negative Murmur or Rub
GI: Soft, Nontender, Nondistended and Normal Bowel Sounds
Musculoskeletal: No Edema
Neuro: Awake, Alert, Oriented, No Motor Deficits and Nonfocal/Grossly Intact
Psych: Calm
--- NOTE | 2025-01-28 14:28 | PN.CDI ---
CDI
- -
CDI:
Physician Documentation Request
Admit Date: 01/25/25 16:31
Dear Doctor Campos,
Clinical Indicators:
Patient admitted with sepsis.
PMH includes metastatic hepatic carcinoma, currently receiving chemotherapy q 2 weeks.
01/28 PN, ' Pancytopenia...Patient had last chemotherapy 19 january.'
Please clarify the likely relationship between the pancytopenia and chemotherapy:
Yes,pancytopenia is related to/associated with/due to chemotherapy
No, pancytopenia is not related to/associated with/due to chemotherapy but it is due to ___. (Please specify)
Other, please specify
Use of terms such as suspected, likely, concern for, or probable (associated with a specific diagnosis that is being evaluated, monitored, or treated as if it exists) are acceptable and can be coded in the inpatient setting, when documented at the
time of discharge.
Thank you,
LY Lopez RN
CDI Specialist
available via tiger text
Please use your independent medical judgment in providing your response.
[2025-01-28 15:26] VITALS: BP 112/64
--- NOTE | 2025-01-28 16:15 | CM ---
Patient seen at bedside
cont IV antibiotic
PLAN: Home, no needs anticipated
[2025-01-28] MEDS: TYLENOL 650 MG PO (16:16)
--- NOTE | 2025-01-28 16:18 | PTCARENOTE ---
Assumed care of this pt @1500. Pt resting in bed complaining of generalized body discomfort/aches and chills. Temp 99.2F. Pt requesting Tylenol for aches. PRN tylenol administered. POC ongoing.
[2025-01-28 23:00] VITALS: BP 131/74
[2025-01-29 04:26] LABS: Hematocrit 23.1 % (39.0-52.0); Hemoglobin 7.8 g/dL (13.0-18.0); Mean Corp Hgb Conc. 33.8 g/dL (33.0-37.0); Mean Corpuscular Volume 92.4 fL (80.0-94.0); Nucleated Red Blood Cells % 0 % (-); Platelet Count 126 10^3/uL (130-400); Red Cell Dist. Width 15.6 % (11.5-14.5)
[2025-01-29 04:51] LABS: ALT (SGPT) 21 U/L (0-50); AST (SGOT) 20 U/L (17-59); Albumin 3.3 g/dl (3.5-5.0); Alkaline Phosphatase 62 U/L (38-126); Blood Urea Nitrogen 4 mg/dl (9-20); Calcium 8.4 mg/dl (8.4-10.2); Carbon Dioxide 27 mmol/L (22-30); Chloride 106 mmol/L (98-107); Estimated Creatinine Clearance 107 ml/min; Glucose 100 mg/dl (70-99); Potassium 3.5 mmol/L (3.5-5.1); Sodium 136 mmol/L (135-145); Total Protein 5.4 g/dl (6.3-8.2); eGFR > 60.00
[2025-01-29] MEDS: UNASYN IV ×4 (04:55→21:36)
[2025-01-29 06:00] VITALS: BMI 22.9
[2025-01-29 08:03] VITALS: BP 109/64
--- NOTE | 2025-01-29 08:12 | W.PN.ONC ---
Today's Communication / Plan
-
CBC appears to past eldon, hemoglobin stable 7.8 g/dL WBC improving platelets improving
Flex sig did not reveal evidence of inflammatory colitis possibly related to PD-L1 therapy
If diarrhea persist consider initiation of steroids prednisone 60 mg daily with PPI support
Continue supportive care
Impression
Impression
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
pancytopenia -no neutropenia or thrombocytopenia in prior cycles, elevated ferritin, no evidence acute DIC with elevated fibrinogen
acute proctocolitis
acute on chronic anemia, baseline Hgb 10-11g/dL
hyponatremia
elevated amylase/lipase
Subjective/Objective
Subjective/Objective
Patient reported no rigors last night. He had a low-grade temperature. Continues to have loose stool.
Vital Signs:
Vital Signs
Temp Pulse Resp BP Pulse Ox
99 F 85 14 109/64 99
01/29/25 08:03 01/29/25 08:03 01/29/25 08:03 01/29/25 08:03 01/29/25 08:03
Physical exam unchanged
Lab Results:
Laboratory Data
WBC 4.6 10^3/uL (4.8-10.8) L 01/29/25 04:02
Hgb 7.8 g/dL (13.0-18.0) L 01/29/25 04:02
Plt Count 126 10^3/uL (130-400) L D 01/29/25 04:02
PT 13.9 Sec (11.4-14.6) 01/27/25 04:21
INR 1.04 01/27/25 04:21
APTT 32.2 Sec (23.4-35.0) 01/27/25 04:21
eGFR > 60.00 01/29/25 04:02
[2025-01-29] MEDS: ZESTRIL 20 MG PO (08:43)
[2025-01-29] MEDS: PROTONIX 40 MG PO (08:43)
[2025-01-29] MEDS: ALPRAZOLAM ODT 0.25 MG PO (11:02)
--- NOTE | 2025-01-29 13:10 | W.PN.HOSP.TC ---
Addendum entered and electronically signed by Jl Gasca MD 01/29/25 14:47:
Discussed with oncology and will start patient on oral prednisone 40 mg daily empirically for possible inflammatory reaction in the colon with PDL1 therapy
Original Note:
Today's Communication/Plan
-
will discuss need of steroids with oncology
continue other care
Assessment / Plan
Assessment / Plan
1. Sepsis -present on admission
Immunocompromise host
Acute proctocolitis
- Denies of having any pulmonary or issues
- CT abdomen pelvis showing possible proctocolitis
- Changed zosyn to unasyn
- s/p flex sig today showing healthy looking recto-sigmoid mucosa.
- imodium for symptomatic care of diarrhea
- possible trial of steroids as patient continues to have diarrhea.
2. Elevated lipase -
- Patient denies epigastric pain and CT did not reveal any pancreatic change
- Lipase elevated greater than 4000 which is trended down to 600
- Continue monitoring
- No abd pain/n/v today, diet switched to low lactose diet by GI.
3. Pancytopenia
- Low hemoglobin/platelet/total WBC count. Normal ANC
- Patient had last chemotherapy 19 january. Patient unsure if he got G-CSF inj after chemo
- Transfuse PRBC if hemoglobin less than 7 or plt < 10k
- Hematology/oncology requested to follow
4. History of metastatic hepatic cancer
- Getting chemotherapy every 2 weeks at [facility] under oncologist Dr. Moralse and Lucia spann
5. Essential hypertension
- Resume back lisinopril
DVT PPX - scd
Full code
Anticipated Discharge: Within 24 hours
Subjective/Interval History
-
Date of Service: January 29, 2025
no complains overnight
denies of problems
Objective Data
-
Labs:
Laboratory Results
01/29/25
04:02
WBC 4.6 L
Hgb 7.8 L
Hct 23.1 L
Plt Count 126 L D
Sodium 136
Potassium 3.5
Chloride 106
Carbon Dioxide 27
BUN 4 L
Creatinine 0.6 L
Glucose 100 H
Calcium 8.4
Total Bilirubin 0.3
AST 20
ALT 21
Alkaline Phosphatase 62
Vital Signs:
Vital Signs
Temp Pulse Resp BP Pulse Ox
99 F 85 14 109/64 99
01/29/25 08:03 01/29/25 08:43 01/29/25 08:03 01/29/25 08:43 01/29/25 08:03
I&O
01/28/25 01/29/25 01/30/25
06:59 06:59 06:59
Intake Total 240 / 240 1060 / 1060
Balance 240 / 240 1060 / 1060
Review of Systems
-
Respiratory: Reports No Symptoms
Cardiac: Reports No Symptoms
Abdomen/GI: Reports No Symptoms
Physical Exam
-
General: No Apparent Distress and Comfortable
HEENT: Negative Oxygen
Respiratory: Clear to Auscultation
Cardiac: Regular Rhythm and S1/S2; Negative Murmur or Rub
GI: Soft
Musculoskeletal: No Edema
Neuro: Awake, Alert, Oriented, No Motor Deficits and Nonfocal/Grossly Intact
Psych: Calm
--- NOTE | 2025-01-29 14:42 | PN.CDI ---
CDI
- -
CDI:
Physician Documentation Request
Admit Date: 01/25/25 16:31
Dear Doctor Campos,
Clinical Indicators:
Patient admitted with sepsis.
Potassium levels:
01/27/25 01/28/25
04:21 05:26
Potassium 3.2 L 3.1 L
01/27 Potassium Chloride [KCl] 20 meq IV Ashish x 1.
01/28 Potassium Chloride [KCl] 20 meq PO ONCE ONE
Based on the above, could you clarify in the progress notes, the appropriate diagnosis, if significant, that supports the above abnormalities and additional evaluation, monitoring and/or treatment rendered:
Hypokalemia
Abnormal lab value, clinically insignificant
Other, please specify
Use of terms such as suspected, likely, concern for, or probable (associated with a specific diagnosis that is being evaluated, monitored, or treated as if it exists) are acceptable and can be coded in the inpatient setting, when documented at the
time of discharge.
Thank you,
LY Lopez RN
CDI Specialist
available via tiger text
Please use your independent medical judgment in providing your response.
[2025-01-29 15:16] VITALS: BP 102/66
[2025-01-29] MEDS: DELTASONE 40 MG PO (15:27)
--- NOTE | 2025-01-29 16:39 | CM ---
Spoke with pt in room .
He said at id his sister Nereida will drive him home.
On steroids and IV antibiotics.
Offered VN he declined need.
PLAN Home no needs
[2025-01-29] MEDS: DILAUDID 0.5 MG IV (21:42)
[2025-01-29 23:00] VITALS: BP 121/67
[2025-01-30 05:27] LABS: Hematocrit 24.8 % (39.0-52.0); Hemoglobin 8.3 g/dL (13.0-18.0); Mean Corp Hgb Conc. 33.5 g/dL (33.0-37.0); Mean Corpuscular Volume 92.5 fL (80.0-94.0); Platelet Count 175 10^3/uL (130-400); Red Cell Dist. Width 15.8 % (11.5-14.5)
[2025-01-30] MEDS: UNASYN IV ×2 (05:37→09:17)
[2025-01-30 06:00] VITALS: BMI 23.3
[2025-01-30 07:30] VITALS: BP 151/85
[2025-01-30 08:07] LABS: Nucleated Red Blood Cells % 0 % (-)
[2025-01-30] MEDS: ZESTRIL 20 MG PO (08:11)
[2025-01-30] MEDS: PROTONIX 40 MG PO (08:11)
[2025-01-30] MEDS: DELTASONE 40 MG PO (08:11)
--- NOTE | 2025-01-30 12:21 | CM ---
Addendum entered by Carlota Carrasquillo 01/30/25 13:47:
Patient discharge today
IMM n/a
PLAN: Home no needs
drove self to hospital
Original Note:
Patient chart reviewed
declines VN
PLAN: home, no needs
--- NOTE | 2025-01-30 12:22 | W.PN.HOSP.TC ---
Addendum entered and electronically signed by Jl Gasca MD 01/31/25 12:22:
Hypokalemia -replace PRN
Original Note:
Today's Communication/Plan
-
d/c home
Assessment / Plan
Assessment / Plan
1. Sepsis -present on admission
Immunocompromise host
Acute proctocolitis - infectious vs inflammatory
- Denies of having any pulmonary or issues
- CT abdomen pelvis showing possible proctocolitis
- Changed Zosyn to Unasyn
- s/p flex sig today showing healthy looking recto-sigmoid mucosa.
- Imodium for symptomatic care of diarrhea
- Discussed with oncology and providing short course of tapering steroids for possible immune reaction with requirement of PDL1 thearpy
2. Elevated lipase
- Patient denies epigastric pain and CT did not reveal any pancreatic change
- Lipase elevated greater than 4000 which is trended down to 600
- Continue monitoring
- No abd pain/n/v today, diet switched to low lactose diet by GI.
3. Pancytopenia
- Low hemoglobin/platelet/total WBC count. Normal ANC
- Patient had last chemotherapy 19 january. Patient unsure if he got G-CSF inj after chemo
- Transfuse PRBC if hemoglobin less than 7 or plt < 10k
- Hematology/oncology requested to follow
4. History of metastatic hepatic cancer
- Getting chemotherapy every 2 weeks at [facility] under oncologist Dr. Morales and Lucia spann
5. Essential hypertension
- Resume back lisinopril
DVT PPX - scd
Full code
More than 30 minutes spent in discharge including
Final examination of the patient
Summarizing hospital stay
Instructions for continuing care to all relevant caregivers
Preparation of discharge records, prescriptions, and referral forms
Total time spent (in minutes): 39 mins
Anticipated Discharge: Today
Subjective/Interval History
-
Date of Service: January 30, 2025
Having some soft stool
Some abdominal discomfort
No nausea or vomiting
Objective Data
-
Labs:
Laboratory Results
01/30/25
04:54
WBC 5.7
Hgb 8.3 L
Hct 24.8 L
Plt Count 175 D
Vital Signs:
Vital Signs
Temp Pulse Resp BP Pulse Ox
97.5 F 96 18 151/85 96
01/30/25 07:30 01/30/25 08:11 01/30/25 07:30 01/30/25 08:11 01/30/25 07:30
I&O
01/29/25 01/30/25 01/31/25
06:59 06:59 06:59
Intake Total 1060 / 1060 1869
Balance 1060 / 1060 1869
Review of Systems
-
Respiratory: Reports No Symptoms
Cardiac: Reports No Symptoms
Abdomen/GI: Denies Abdominal Pain, Nausea or Vomiting
Physical Exam
-
General: No Apparent Distress and Comfortable
HEENT: Negative Oxygen
Respiratory: Clear to Auscultation
Cardiac: Regular Rhythm and S1/S2; Negative Murmur or Rub
GI: Soft, Nontender and Nondistended
Musculoskeletal: No Edema
Neuro: Awake, Alert, Oriented, No Motor Deficits and Nonfocal/Grossly Intact
Psych: Calm
--- NOTE | 2025-01-30 14:08 | W.PN.ONC2 ---
Today's Communication / Plan
-
- positive response to prednisone. continue with taper on discharge.
Impression
Impression
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
pancytopenia -no neutropenia or thrombocytopenia in prior cycles, elevated ferritin, no evidence acute DIC with elevated fibrinogen
acute proctocolitis
acute on chronic anemia, baseline Hgb 10-11g/dL
hyponatremia
elevated amylase/lipase
Plan
Plan
cytopenias from chemotherapy improved with normal WBC, plts today. Hgb stable at 8.3 g/dl.
Flex sig did not reveal evidence of inflammatory colitis however had ongoing diarrhea.
started prednisone 40 mg daily on 01/29 with significant improvement in symptoms today. Response to steroids suggests symptoms possibly represent ICI colitis. Recommend continuing prednisone on discharge with taper by 10 mg every 3-5 days. instructed
to review steroid taper with his primary oncologist who may want to adjust pace depending on if return of symptoms. I will defer to his primary oncologist regarding whether appropriate to rechallenge immunotherapy with future tx.
Continue supportive care. Appreciate GI consultation.
Subjective/Objective
Chief Complaint
cholangiocarcinoma on chemoimmunotherapy, diarrhea
Subjective
pt was started on prednisone 40 mg daily yesterday with improvement in loose bowels today. Denies fevers, chills, hematochezia, abdominal pain.
Vital Signs:
Vital Signs
Temp Pulse Resp BP Pulse Ox
97.5 F 96 18 151/85 96
01/30/25 07:30 01/30/25 08:11 01/30/25 07:30 01/30/25 08:11 01/30/25 07:30
Lab Results:
Laboratory Data
WBC 5.7 10^3/uL (4.8-10.8) 01/30/25 04:54
Hgb 8.3 g/dL (13.0-18.0) L 01/30/25 04:54
Plt Count 175 10^3/uL (130-400) D 01/30/25 04:54
PT 13.9 Sec (11.4-14.6) 01/27/25 04:21
INR 1.04 01/27/25 04:21
APTT 32.2 Sec (23.4-35.0) 01/27/25 04:21
eGFR > 60.00 01/29/25 04:02
Physical Exam
HEENT: No Jaundice
Cardiology: Normal Sinus Rhythm
Pulmonary: Clear
Extremities: No Edema
Neuro: Non Focal
Review of Systems
Review of Systems
Constitutional: Reports Fatigue; Denies Fever
Respiratory: Denies Dyspnea
Gastrointestinal: Reports Diarrhea; Denies Nausea/Vomiting
[2025-01-30 14:38] VITALS: BP 138/84
== END 2025-01-30 15:40 | disposition home or self-care (01) | DRG 871 ==
LOC: 3 WEST ACU 16:31
PROVIDERS: Internal Medicine; Nurse Practitioner Acute Care; ADMITTING PHYSICIAN Internal Medicine; ATTENDING PHYSICIAN Hospitalist; CONSULT PHYSICIAN Internal Medicine Gastroenterology; CONSULT PHYSICIAN Internal Medicine Hematology & Oncology; EMERGENCY PHYSICIAN Student in an Organized Health Care Education/Training Program; FAMILY PHYSICIAN Nurse Practitioner Gerontology
PROC: 0DJD8ZZ Inspection of Lower Intestinal Tract, Via Natural or Artificial Opening Endoscopic (ICD-10-PCS; 2025-01-27)
DX: A41.9 Sepsis, unspecified organism (principal); D61.810 Antineoplastic chemotherapy induced pancytopenia; D84.9 Immunodeficiency, unspecified; E87.1 Hypo-osmolality and hyponatremia; I10 Essential (primary) hypertension; Z85.05 Personal history of malignant neoplasm of liver; Z87.891 Personal history of nicotine dependence; Z88.1 Allergy status to other antibiotic agents; T45.1X5A Adverse effect of antineoplastic and immunosuppressive drugs, initial encounter; D18.03 Hemangioma of intra-abdominal structures; E78.5 Hyperlipidemia, unspecified; F41.9 Anxiety disorder, unspecified; I25.10 Atherosclerotic heart disease of native coronary artery without angina pectoris; K21.9 Gastro-esophageal reflux disease without esophagitis; M51.369 Other intervertebral disc degeneration, lumbar region without mention of lumbar back pain or lower extremity pain; N30.90 Cystitis, unspecified without hematuria
CPT/HCPCS: 74177; 80053; 81003; 81015; 82150; 82728; 83605; 83690; 85025; 85027; 85379; 85384; 85610; 85730; 87040; 87045; 87046; 87070; 87077; 87086; 87324; 87427; 87449; 87798; 89055; 96361; 96374; 96375; 99285; Q9967

== ENCOUNTER 2025-05-08 14:00 | Emergency (ER) | payer MEDICARE, SELFPAY ==
[2025-05-08 14:02] VITALS: BP 171/100
--- NOTE | 2025-05-08 15:32 | ED.GENMED ---
History of Present Illness
General
Chief Complaint: Cardiac Symptoms
Source: patient
Time Seen by Provider: 05/08/25 15:15
History of Present Illness
History of Present Illness:
Note:
CHIEF COMPLAINT(S)
Pressure and congestion in the head, possible tooth infection.
HISTORY OF PRESENT ILLNESS
The patient is a 64-year-old male presenting with head pressure and extreme congestion, which he attributes to a dental infection. He reports a broken tooth that was supposed to be extracted and believes the infection may have become systemic,
causing heart palpitations and fatigue. The symptoms began a couple of weeks ago and have progressively worsened. The patient denies any fever. He was previously prescribed antibiotics for a sinus infection, which he completed about eight days ago.
No chest pain or shortness of breath is reported. The patient notes an increase in palpitations when the head pressure escalates.
PAST MEDICAL AND SURIGICAL HISTORY
The patient has a history of liver cancer, for which he has a port in place. The last chemotherapy session was postponed since February due to illness. The treating physician is Dr. Luis Fernando Garibay.
CHRONIC MEDICAL CONDITIONS SIGNIFICANTLY AFFECTING CARE
History of liver cancer.
ALLERGIES
Patient reports allergy to mold affecting breathing.
PHYSICAL EXAM
General: Alert, no acute distress.
Skin: Warm, dry.
Head: Normocephalic, atraumatic.
Eyes, Ears, Nose, Mouth and Throat: Missing several teeth with a dental fracture at tooth number 31. No facial tenderness or swelling. Oral mucosa moist.
Cardiovascular: Normal peripheral perfusion, No edema. A pronounced heart murmur present.
Respiratory: Lungs clear to auscultation, respirations are non-labored.
Gastrointestinal: Abdomen soft, non-tender.
Back: Normal range of motion, Normal alignment.
Musculoskeletal: Normal range of motion, normal strength.
Neurological: Alert and oriented to person, place, time, and situation. No focal neurological deficit observed.
Psychiatric: Cooperative, appropriate mood & affect.
PLAN
1. Laboratory studies to assess white blood cell count, hemoglobin, electrolytes, and magnesium levels to check for systemic infection.
2. Intravenous fluids for supportive care.
3. Consider imaging of the head to evaluate sinus complaints and ensure there are no other contributing factors.
4. Dental evaluation for tooth extraction and treatment of suspected tooth infection.
DIFFERENTIAL DIAGNOSIS
The Differential Diagnosis includes, in no particular order and is not limited to:
1. Dental abscess
2. Sinusitis
3. Systemic infection secondary to dental origin
4. Viral upper respiratory infection
5. Bacterial sinusitis
6. Gastroesophageal reflux disease (GERD) leading to palpitations
7. Arrhythmia
8. Anxiety/panic disorder
9. Cardiomyopathy
10. Fatigue related to ongoing liver cancer and chemotherapy treatment disruptions
EKG
My independent EKG interpretation is:
- Time of EKG: [Not specified, please provide if necessary]
- Rhythm: Normal sinus rhythm
- Heart Rate: 77 bpm
- [place]: Normal
- GA Interval: Normal
- QRS Duration: Normal
- QT Interval: Normal
- Abnormalities: No acute ischemic changes noted
Disposition:
SUMMARY OF ENCOUNTER
A 64-year-old male presented with symptoms including head pressure and extreme congestion. He was particularly concerned about a dental infection potentially becoming systemic. He previously experienced fatigue and heart palpitations which he
attributed to the dental issue. The patient had a history of liver cancer with chemotherapy that was postponed since February. He was seen in the emergency department to rule out a systemic infection stemming from his dental problems.
DISPOSITION
The patient was discharged with instructions to follow up with his primary care physician.
ASSESSMENT
The concerns regarding a systemic infection from the dental issue were considered. The absence of leukocytosis and normal imaging results, including no acute findings on a head CT, correlated with the conclusion of no systemic infection.
PLAN
1. Discharge the patient with a follow-up to be scheduled with their primary care physician.
2. Continue monitoring for any new or worsening symptoms.
INDEPENDENT REVIEW OF LABS AND INTERPRETATION OF TESTS
- My independent review of CBC shows a white blood cell count that is normal, indicating no systemic infection.
- Hemoglobin level was 11.7, which is up from baseline and platelets normal.
- CMP and LFTs are normal, indicating no acute issues.
- My independent EKG interpretation shows a normal sinus rhythm with no acute ischemic changes.
- My independent review of the head CT shows no acute intracranial process.
MEDICAL DECISION MAKING
- Complexity of Data Reviewed: Chronic conditions affecting care [history of liver cancer]. Differential Diagnosis includes dental abscess, sinusitis, systemic infection secondary to dental origin, viral upper respiratory infection, bacterial
sinusitis, GERD, arrhythmia, anxiety/panic disorder, cardiomyopathy, and fatigue related to ongoing liver cancer and chemotherapy treatment disruptions.
- Data:
Category 1
Reviewed CBC, CMP, LFTs indicating normal levels.
My independent interpretation of EKG and head CT.
- Risk:
Consideration of Admission/Observation: Escalation of care including admission/observation was considered given the complexity and risk of the patients presenting complaint, exam findings, and/or their underlying comorbidities. However, ultimately I
feel the patient is safe for outpatient management with close follow up. Reasoning: Work-up is reassuring, does not reveal any acute life/organ-threatening processes, patients symptoms well controlled upon reevaluation, reexamination is reassuring,
vitals are stable, patient agreeable with discharge, reliable for follow-up.
DIAGNOSIS
1. Dental abscess suspected without systemic involvement (K04.7)
2. Congestion and head pressure possibly from sinusitis (J01.90)
3. Palpitations likely secondary to underlying stress or anxiety (R00.2)
Past History
Past History
ED Past Medical History: Cancer (Liver with mets), GERD and HTN
ED Past Surgical History: Tonsilectomy
Social History
Tobacco: Former smoker
Alcohol: None
Personal: Single
Living: with family
Employment: Employed
Phy Exam
Physical Exam
Physical Exam:
.
Course
Orders/Labs/Results
Orders:
Orders
05/08/25 14:04
EKG [Electrocardiogram (*1)] Urgent
Reason for Study: Palpitations
05/08/25 14:05
EKG- Treatment ONCE
05/08/25 15:16
Cardiac Monitoring- Treatment ONCE
05/08/25 15:31
0.9% Sodium Chloride 1000 ml [Nss] 1,000 ml IV BOLUS
05/08/25 15:32
CT Head W/o Iv Contrast Urgent
Comment:
Reason For Exam: JUDD, h/o Liver CA
05/08/25 16:19
Complete Blood Count/With Diff Urgent
Comprehensive Metabolic Panel Urgent
Magnesium Urgent
TSH Urgent
05/08/25 19:18
Heparin Pf [Heparin Lock Flush] 500 unit .ROUTE .STK-MED ONE
Abnormal Lab Results
05/08/25
16:19
RBC 3.87 L 10^6/uL
(4.70-6.10)
Hgb 11.7 L g/dL
(13.0-18.0)
Hct 35.6 L %
(39.0-52.0)
MCHC 32.9 L g/dL
(33.0-37.0)
Abs Immat Gran (auto) 0.1 H 10^3/uL
(0-0.05)
Absolute Monos (auto) 0.7 H 10^3/uL
(0.1-0.6)
Immature Gran % 0.7 H %
(0-0.5)
Sodium 134 L mmol/L
(135-145)
BUN 7 L mg/dl
(9-20)
Creatinine 0.6 L mg/dL
(0.7-1.3)
05/08/25 16:19
05/08/25 16:19
Vital Signs
Blood pressure: 136/85
Initial and Last Documented VS:
Initial Vital Signs
Temp Pulse Resp BP Pulse Ox
98.0 F 84 16 171/100 98
05/08/25 14:02 05/08/25 14:02 05/08/25 14:02 05/08/25 14:02 05/08/25 14:02
Last Documented Vital Signs
Temp Pulse Resp BP Pulse Ox
98.0 F 74 12 148/83 99
05/08/25 14:02 05/08/25 17:15 05/08/25 17:15 05/08/25 17:00 05/08/25 17:15
*Pulse Oximetry
SaO2: 98
Oxygen Mode of Delivery: Room air
Patient hypoxic: no
*Critical Care Note
Total Time (30-74mins, 75-104mins- exclusive of procedures): Not Applicable
ED Attending Note
-
Portions of this chart may have been created with voice recognition software.� Occasional wrong word or��sound alike� substitutions may have occurred due to the inherent limitations of voice recognition software.
Discharge Plan
Departure
Patient Disposition: Home (Routine Discharge)
Date of Disposition: 05/08/25
Time of Disposition: 19:25
Patient with high blood pressure during this ER visit?: Yes
Discharge Problem:
Weakness, Palpitations, Dental caries
Instructions: Palpitations, Fatigue (DC), BLOOD PRESSURE
Prescriptions:
No Action
acetaminophen [Tylenol] 325 mg Tablet
650 mg PO Q6HPRN PRN (Reason: mild pain)
atorvastatin [Lipitor] 20 mg Tablet
20 mg PO QPM
ondansetron HCl 8 mg tablet
8 mg PO TIDPRN PRN (Reason: nausea)
lisinopril 20 mg Tablet
20 mg PO DAILY
pantoprazole [Protonix] 40 mg Tablet,Delayed Release (Dr/Ec)
40 mg PO DAILY
prednisone 10 mg Tablet
See Rx Instructions .ROUTE .COMPLEX Qty: 30 0RF
Rx Instructions:
Take By Mouth:
40 mg daily x3 days, 30 mg daily x3 days,
20 mg daily x3 days, 10 mg daily x3 days.
amoxicillin-pot clavulanate 875-125 mg tablet
1 tab PO BID Qty: 6 0RF
Referrals:
ROSALIA RIZO CRNP [Family Provider, Family Practice]
Activity Restrictions/Additional Instructions:
Please see your doctor in the next 3 to 5 days for follow-up and reevaluation. Drink plenty of fluids. Return immediately for chest pain, shortness of breath, fevers of any kind, facial swelling or any other concerns.
Interventions
Interventions:
*Risk Screen - Suicide Last Done: 05/08/25 14:02
*General Assessment Last Done: 05/08/25 14:02
*Neglect/Abuse Screening Last Done: 05/08/25 14:02
*ED COVID-19 Vaccine History Last Done: 05/08/25 15:33
*ED Influenza Vaccine History Last Done: 05/08/25 15:33
ED- Pulmonary Assessment Last Done: 05/08/25 16:09
ED- Cardiac Assessment Last Done: 05/08/25 16:09
Discharge Date and Time
Print Language: CROATIAN
[2025-05-08 16:00] VITALS: BP 147/99
[2025-05-08] MEDS: NSS 1000 IV (16:19)
[2025-05-08 16:31] LABS: Hematocrit 35.6 % (39.0-52.0); Hemoglobin 11.7 g/dL (13.0-18.0); Mean Corp Hgb Conc. 32.9 g/dL (33.0-37.0); Mean Corpuscular Volume 92.0 fL (80.0-94.0); Nucleated Red Blood Cells % 0 % (-); Platelet Count 285 10^3/uL (130-400); Red Cell Dist. Width 13.6 % (11.5-14.5)
[2025-05-08 16:45] LABS: ALT (SGPT) 13 U/L (0-50); AST (SGOT) 17 U/L (17-59); Albumin 3.9 g/dl (3.5-5.0); Alkaline Phosphatase 60 U/L (38-126); Blood Urea Nitrogen 7 mg/dl (9-20); Calcium 9.6 mg/dl (8.4-10.2); Carbon Dioxide 27 mmol/L (22-30); Chloride 104 mmol/L (98-107); Glucose 78 mg/dl (70-99); Magnesium 2.0 mg/dl (1.6-2.3); Potassium 4.1 mmol/L (3.5-5.1); Sodium 134 mmol/L (135-145); Total Protein 6.4 g/dl (6.3-8.2); eGFR > 60.00
[2025-05-08 17:00] VITALS: BP 148/83
[2025-05-08 17:16] LABS: TSH 0.81 uIU/ml (0.47-4.68)
== END 2025-05-08 20:03 | disposition home or self-care (01) ==
LOC: EMR 14:00
PROVIDERS: EMERGENCY PHYSICIAN Emergency Medicine; FAMILY PHYSICIAN Nurse Practitioner Gerontology
DX: R53.1 Weakness (principal); R00.2 Palpitations; K02.9 Dental caries, unspecified; K21.9 Gastro-esophageal reflux disease without esophagitis; I10 Essential (primary) hypertension; Z85.05 Personal history of malignant neoplasm of liver; Z87.891 Personal history of nicotine dependence; Z91.048 Other nonmedicinal substance allergy status; Z95.828 Presence of other vascular implants and grafts
CPT/HCPCS: 99284; 70450; 80053; 83735; 84443; 85025; 93005